=== PATIENT | male | born 1935 | race Caucasian/White ===

== ENCOUNTER → 2019-04-15 15:17 | Outpatient (CLI) | payer MEDICARE, BC, OTHER, SELFPAY ==
--- NOTE | 2019-04-15 | DI.MRI.S_ITS ---
PROCEDURE: MR PELVIS WO CON INDICATIONS: Left hip and groin pain TECHNIQUE: Noncontrast axial and coronal T1 spin echo and STIR through the lumbosacral plexus region. Optional contrast may be given, followed by axial and coronal T1 spin echo with fat saturation through the sacral plexus. Metal artifact suppression technique was utilized. COMPARISON: [facility] Outside Film, RG, HIP COMP MIN 2VW (LT), 06/07/2017, 3:48. [facility] [place], CR, XR PELVIS WITH LATERAL HIP LEFT, 03/08/2019, 13:53. FINDINGS: Image quality: Excellent. Lumbosacral plexus: Superior to the piriformis muscles, the pre-plexal structures appear normal, including the lumbosacral trunk and S1 root. Just anterior to the piriformis muscles, the sacral plexus proper demonstrates normal morphology (lumbosacral trunk, S1 to S3 nerve roots). Inferior to the piriformis muscles, the sciatic nerves appear normal. Soft tissues: The piriformis muscles appear symmetric in size. No presacral masses. Rectum appears normal in caliber and wall thickness. No pathologic free pelvic fluid. No visualized adenopathy by size criteria. There is expected metal artifact related to the left total hip arthroplasty, and no adjacent inflammation or fluid collection is identified. The adjacent bursal space and is in signal intensity within the periarticular left hip region are normal. Note is made of a penile implant, also normal without evidence of adjacent inflammation. Bones: Marrow is normal in overall signal. IMPRESSION: Expected postoperative appearance as discussed above, no source of persistent and recurrent left hip pain after left total hip arthroplasty. Dictated by: Clinton Ivey M.D. on 04/15/2019 at 17:11 Approved by: Clinton Ivey M.D. on 04/15/2019 at 17:14
== END ==
PROVIDERS: Family Provider Family Medicine; PCP Family Medicine; Visit Provider Orthopaedic Surgery
DX: M25.552 Pain in left hip (principal); R10.32 Left lower quadrant pain; Z96.642 Presence of left artificial hip joint
CPT/HCPCS: 72195

== ENCOUNTER → 2020-03-24 11:40 | Outpatient (CLI) | payer MEDICARE, BC, OTHER, SELFPAY ==
[2020-03-24 12:08] LABS: Bacteria Urine None Seen
[2020-03-24 12:38] LABS: Appearance Urine UA CLEAR; Bilirubin Urine UA NEGATIVE (NEGATIVE); Color Urine UA YELLOW; Glucose Urine UA NEGATIVE (Negative); Ketones Urine UA NEGATIVE (NEGATIVE); Leukocyte Esterase Urine UA TRACE (NEGATIVE); Nitrite Urine UA NEGATIVE (Negative); Occult Blood Urine UA 3+ (Negative); Protein Urine UA NEGATIVE (Negative); Specific Gravity Urine UA 1.015 (1.000-1.035); Urobilinogen Urine UA 0.2 E.U./dL (0.2); pH Urine UA 5.5 (4.5-8.0)
[2020-03-24 12:45] LABS: Uric Acid 6.6 mg/dL (3.5-8.5)
[2020-03-24 12:48] LABS: RBC Urine 5-10/HPF (0-5/HPF); WBC Urine 5-10/HPF (0-5/HPF)
[2020-03-24 13:48] LABS: Creatinine Urine Random 193.9 mg/dL
[2020-03-24 13:54] LABS: Microalbumi Creatinin Ratio Ur 31.9 ug/mg CR (<30); Microalbumin Urine Random 6.2 mg/dL (0-1.6)
[2020-03-24 14:05] LABS: Vitamin D 25 Hydroxy (D3) 43.1 ng/mL (30.0-100.0)
[2020-03-25 08:08] LABS: Parathyroid Hormone Int 26 pg/mL (15-65)
[2020-03-27 08:59] LABS: BUN Creatinine Ratio 14.1 (6-22); Blood Urea Nitrogen 26 mg/dL (9-20); Calcium 9.9 mg/dL (8.4-10.2); Carbon Dioxide 30 mmol/L (22-32); Chloride 102 mmol/L (98-107); Estimated Glomerular Filt Rate 35.1 mL/min (>60); Glucose 87 mg/dL (80-110); HEMOLYSIS < 15 (0-50); Potassium 4.6 mmol/L (3.4-5.1); Sodium 138 mmol/L (137-145)
== END ==
PROVIDERS: Family Provider Family Medicine; PCP Family Medicine; Referring Provider Internal Medicine Nephrology; Visit Provider Internal Medicine Nephrology
DX: N18.3 Chronic kidney disease, stage 3 (moderate) (principal)
CPT/HCPCS: 36415; 80048; 81001; 82043; 82306; 82570; 83970; 84550

== ENCOUNTER → 2020-09-05 11:53 | Outpatient (CLI) | payer MEDICARE, BC, OTHER, SELFPAY ==
[2020-09-05 12:29] LABS: Add Manual Diff / Slide Review NO; Basophils Absolute Auto 100 /uL (0-100); Eosinophils Absolute Auto 300 /uL (0-450); Eosinophils Percent Auto 2.9 % (2-4); Hematocrit 47.3 % (41-53); Lymphocytes Absolute Auto 1900 /uL (1100-4500); Mean Corpuscular HGB Conc 33.8 % (30-36); Mean Corpuscular Hemoglobin 31.6 PG (26-34); Mean Corpuscular Volume 93.5 fL (80-100); Monocytes Absolute Auto 700 /uL (0-900); Monocytes Percent Auto 7.9 % (3-14); Neutrophils Absolute Auto 5800 /uL (1500-7000); Neutrophils Percent Auto 66.2 % (50-75); Platelet Count 247 X10^3/uL (150-400); Red Blood Cell Count 5.06 X10^6/uL (4.5-5.9); Red Cell Distribution Width 12.9 % (11.6-14.8); White Blood Cell Count 8.7 X10^3/uL (4.5-11.0)
[2020-09-05 12:52] LABS: Appearance Urine UA CLEAR; Bilirubin Urine UA NEGATIVE (NEGATIVE); Color Urine UA YELLOW; Glucose Urine UA NEGATIVE (Negative); Ketones Urine UA NEGATIVE (NEGATIVE); Leukocyte Esterase Urine UA TRACE (NEGATIVE); Nitrite Urine UA NEGATIVE (Negative); Occult Blood Urine UA TRACE-INTACT (Negative); Protein Urine UA TRACE (Negative); Specific Gravity Urine UA 1.025 (1.000-1.035); Urobilinogen Urine UA 0.2 E.U./dL (0.2); pH Urine UA 5.5 (4.5-8.0)
[2020-09-05 12:57] LABS: Alanine Aminotransferase 17 IU/L (<50); Albumin 4.1 g/dL (3.5-5.0); Albumin Globulin Ratio 1.5 (1.0-2.8); Alkaline Phosphatase 82 U/L (38-126); Aspartate Aminotransferase 20 IU/L (17-59); BUN Creatinine Ratio 15.2 (6-22); Bilirubin Total 0.8 mg/dL (0.2-1.3); Blood Urea Nitrogen 30 mg/dL (9-20); Calcium 9.5 mg/dL (8.4-10.2); Carbon Dioxide 26 mmol/L (22-32); Chloride 104 mmol/L (98-107); Cholesterol 195 mg/dL (140-199); Estimated Glomerular Filt Rate 32.4 mL/min (>60); Globulin 2.8 g/dL (1.7-4.1); Glucose 104 mg/dL (80-110); HDL Cholesterol 49 mg/dL (40-60); HEMOLYSIS < 15 (0-50); LDL Cholesterol Calculated 94 mg/dL (<100); Potassium 4.3 mmol/L (3.4-5.1); Sodium 138 mmol/L (137-145); Total Protein 6.9 g/dL (6.3-8.2); Triglycerides 258 mg/dL (35-150)
[2020-09-05 13:03] LABS: Bacteria Urine Many (>30); Hyaline Casts Urine 10-30/LPF; RBC Urine 1-5/HPF (0-5/HPF); Squamous Epithelial Cell Urine 0-1 /HPF (0-5/HPF); WBC Urine 5-10/HPF (0-5/HPF)
[2020-09-05 13:04] LABS: Culture Indicated Urine Specimen Cultured; Mucus Urine 2+ (Negative)
[2020-09-05 13:26] LABS: Prostate Specific Antigen Scrn 1.78 ng/mL (0.1-4.0)
[2020-09-05 13:27] LABS: Thyroid Stimulating Hormone 3.49 uIU/mL (0.47-4.68)
[2020-09-05 13:44] LABS: Vitamin B12 1000 pg/mL (239-931)
[2020-09-05 15:30] LABS: Creatinine Urine Random 264.4 mg/dL
[2020-09-05 15:33] LABS: Microalbumi Creatinin Ratio Ur 35.1 ug/mg CR (<30); Microalbumin Urine Random 9.3 mg/dL (0-1.6)
[2020-09-05 15:45] LABS: Vitamin D 25 Hydroxy (D3) 39.7 ng/mL (30.0-100.0)
[2020-09-06 06:13] LABS: Parathyroid Hormone Int 37 pg/mL (15-65)
== END ==
PROVIDERS: Family Provider Family Medicine; PCP Family Medicine; Referring Provider Internal Medicine Nephrology; Visit Provider Internal Medicine Nephrology
DX: E03.9 Hypothyroidism, unspecified (principal); I10 Essential (primary) hypertension; Z12.5 Encounter for screening for malignant neoplasm of prostate; Z79.899 Other long term (current) drug therapy; E78.5 Hyperlipidemia, unspecified; M10.9 Gout, unspecified; G20 Parkinson's disease; N18.30 Chronic kidney disease, stage 3 unspecified
CPT/HCPCS: 36415; 80053; 80061; 81001; 82043; 82306; 82570; 82607; 83970; 84439; 84443; 85025; 87086; G0103

== ENCOUNTER 2020-10-31 14:29 | Emergency (ER) | payer MEDICARE, BC, OTHER, SELFPAY ==
[2020-10-31] VITALS (13 sets, daily range): BP systolic 95–173; BP diastolic 64–93; PULSE 78–99; RESP 18–20; TEMP 36.7; O2SAT 94–99
--- NOTE | 2020-10-31 14:48 | ED.GENADULT ---
HPI - General Adult General Chief complaint: Nausea/Vomiting/Diarrhea Stated complaint: nausea,vomiting since Thursday Time Seen by Provider: 10/31/20 14:34 Source: patient and family () Mode of arrival: Wheelchair Limitations: no limitations History of Present Illness HPI narrative: 85-year-old male with a history of Parkinson's disease here for evaluation of approximately 2 days of nausea and vomiting. Patient states that he is also constipated but this is not new for him and is related to his Parkinson's. He has had no recent travel. No recent antibiotic use. He has no abdominal pain. He does get lightheaded when he stands up but again this is not new for him because of his Parkinson's. He was concerned that potentially he is dehydrated from the vomiting. He has been able to drink some fluids without any issues. He did drink some broth last evening and was able to hold this down. He states that last evening he was lying in bed and stated that he really did not feel very well. He is not having any chest pain or shortness of breath. He does not have any nausea medication at home. His states that this has happened to him in the past but it has never lasted this long. Related Data Home Medications Medication Instructions Recorded Confirmed acyclovir 200 mg capsule 400 mg PO BID 03/29/19 03/29/19 amantadine HCl 100 mg capsule 100 mg PO BID 03/29/19 03/29/19 aspirin 81 mg tablet,delayed 81 mg PO DAILY 03/29/19 03/29/19 release atorvastatin 10 mg tablet 10 mg PO BEDTIME 03/29/19 03/29/19 coenzyme Q10 100 mg capsule 200 mg PO DAILY 03/29/19 03/29/19 hydralazine 10 mg tablet 10 mg PO TID 03/29/19 03/29/19 latanoprost 0.005 % eye drops EYE-BOTH ml 03/29/19 03/29/19 levothyroxine 100 mcg capsule 100 mcg PO DAILY 03/29/19 03/29/19 lidocaine 4 % topical cream 1 applictn TOP BID 03/29/19 03/29/19 omeprazole 40 mg capsule,delayed 40 mg PO DAILY 03/29/19 03/29/19 release prednisone 20 mg tablet 20 mg PO DAILY 03/29/19 03/29/19 Previous Rx's Medication Instructions Recorded gabapentin 300 mg capsule 300 mg PO BID #60 cap 03/29/19 ondansetron 4 mg PO Q6H PRN #10 tab 10/31/20 Allergies Allergy/AdvReac Type Severity Reaction Status Date / Time adhesive Allergy Mild BILSTERS Unverified 03/29/19 14:38 FROM TAPE Sulfa (Sulfonamide Allergy Unknown Unverified 03/29/19 14:38 Antibiotics) Review of Systems Constitutional Constitutional: Denies fever(s) and Denies headache(s) ENT Ears, Nose, Mouth, and Throat: Denies headache(s) Cardiovascular Cardiovascular: Denies chest pain and Denies dyspnea Respiratory Respiratory: Denies dyspnea Gastrointestinal Gastrointestinal: Denies abdominal pain, Denies change in bowel habits, Reports nausea and Reports vomiting Genitourinary Genitourinary: Denies dysuria Genitourinary: Denies dysuria Musculoskeletal Musculoskeletal: Denies arthralgias and Denies myalgias Integumentary/Breasts Skin/Breast: Denies rash Neurologic Neurologic: Denies headache(s) Hematologic/Lymphatic On Anticoagulants: No Allergic/Immunologic Allergic/Immunologic: Denies urticaria Patient History Medical History (Updated 10/31/20 @ 17:24 by Kvng Ayala DO) Hx of skin cancer, basal cell Hypothyroid Kidney disease Parkinsons Surgical History History of hip replacement History of tonsillectomy and adenoidectomy Hx of appendectomy Hx of cataract surgery Hx of cholecystectomy Hx of knee surgery Hx of neck surgery Family History Father Hypertension Heart disease Cancer Social History marital status: household members: spouse occupational status: previously employed Smoking Status: Never smoker alcohol intake: current substance use type: does not use Smoking Status: Never smoker Exam Initial Vital Signs Initial Vital Signs: Vital Signs Pulse Rate 99 H 10/31/20 14:35 Blood Pressure 95/64 10/31/20 14:35 Pulse Oximetry 99 10/31/20 14:35 Const General: cooperative and comfortable Limitations: mental status not altered HENMT Head: normal to inspection and normocephalic Resp Effort & Inspection: normal respiratory effort Auscultation: clear to auscultation bilaterally Cardio Rate: regular rate Rhythm: regular rhythm GI Inspection: non-distended Palpation: soft, No firm and No tender Skin Lesions: no lesions Rashes: no rashes Neuro General: patient alert, patient awake and patient oriented x3 Cognition: normal cognition Speech: speech normal Extrem General: normal to inspection and capillary refill normal Psych Appearance: grossly normal and well kempt Scores GCS [place] coma scale eye opening: Spontaneous [place] coma scale verbal response: Orientated [place] coma scale motor response: Obey commands [place] coma scale total score: 15 Course Orders Ordered: ED Orders 10/31/20 15:00 Complete Blood Count AUTO DIFF Stat Comprehensive Metabolic Panel Stat Lipase Stat 10/31/20 16:13 Urine Microscopic Stat Discontinued Medications Sodium Chloride (Normal Saline 0.9%) 1,000 mls @ 1,000 mls/hr IV BOLUS ONE Stop: 10/31/20 15:47 Last Infusion: 10/31/20 16:01 Dose: 0 mls/hr Documented by: Infusion: 10/31/20 15:56 Dose: 1,000 mls/hr Documented by: Infusion: 10/31/20 15:55 Dose: 0 mls/hr Documented by: Admin: 10/31/20 15:11 Dose: 1,000 mls/hr Documented by: SEHRI Vital Signs Vital signs: Vital Signs - 8 hr 10/31/20 14:35 10/31/20 14:36 10/31/20 15:23 Temperature 98.1 F Pulse Rate 99 H 90 79 Respiratory Rate 20 18 Blood Pressure 95/64 160/85 H Blood Pressure [Right Arm] 95/64 Pulse Oximetry 99 96 97 10/31/20 15:26 10/31/20 15:30 10/31/20 16:00 Temperature Pulse Rate 78 79 80 Respiratory Rate Blood Pressure 170/84 H 173/84 H Blood Pressure [Right Arm] Pulse Oximetry 97 97 98 10/31/20 16:08 10/31/20 16:30 10/31/20 16:31 Temperature Pulse Rate 84 85 Respiratory Rate 18 Blood Pressure 170/80 H 170/80 H Blood Pressure [Right Arm] Pulse Oximetry 97 97 10/31/20 16:32 10/31/20 17:00 10/31/20 17:04 Temperature Pulse Rate 85 84 84 Respiratory Rate Blood Pressure Blood Pressure [Right Arm] Pulse Oximetry 94 97 96 10/31/20 17:10 Temperature Pulse Rate 82 Respiratory Rate Blood Pressure 172/93 H Blood Pressure [Right Arm] Pulse Oximetry 96 Medical Decision Making Lab Data Lab results reviewed: Yes I reviewed the patient's lab results. Result diagrams: 10/31/20 15:00 10/31/20 15:00 Labs: Lab Results 10/31/20 10/31/20 10/31/20 Range/Units 15:00 15:00 15:00 WBC 8.7 (4.5-11.0) X10^3/uL RBC 5.35 (4.5-5.9) X10^6/uL Hgb 16.6 (13.5-17.5) g/dL Hct 49.0 (41-53) % MCV 91.4 (80-100) fL MCH 31.1 (26-34) PG MCHC 34.0 (30-36) % RDW 12.7 (11.6-14.8) % Plt Count 227 (150-400) X10^3/uL Neut % (Auto) 75.1 H (50-75) % Lymph % (Auto) 15.6 L (25-40) % [place] % (Auto) 7.1 (3-14) % Eos % (Auto) 1.1 L (2-4) % Baso % (Auto) 1.1 (0-2) % Neut # (Auto) 6600 (3172-6318) /uL Lymph # (Auto) 1400 (2107-0102) /uL [place] # (Auto) 600 (0-900) /uL Eos # (Auto) 100 (0-450) /uL Baso # (Auto) 100 (0-100) /uL Sodium 130 L (137-145) mmol/L Potassium 4.7 (3.4-5.1) mmol/L Chloride 95 L (98-107) mmol/L Carbon Dioxide 24 (22-32) mmol/L BUN 25 H (9-20) mg/dL Creatinine 2.02 H (0.66-1.25) mg/dL Estimated GFR 31.6 L (>60) mL/min BUN/Creatinine Ratio 12.4 (6-22) Glucose 70 L (80-110) mg/dL Calcium 9.5 (8.4-10.2) mg/dL Total Bilirubin 1.0 (0.2-1.3) mg/dL AST 24 (17-59) IU/L ALT 18 (<50) IU/L Alkaline Phosphatase 94 (38-126) U/L Total Protein 7.1 (6.3-8.2) g/dL Albumin 4.2 (3.5-5.0) g/dL Globulin 2.9 (1.7-4.1) g/dL Albumin/Globulin Ratio 1.4 (1.0-2.8) Lipase 48 (23-300) U/L Urine RBC (0-5/HPF) Urine WBC (0-5/HPF) Urine Bacteria (None) Ur Culture Indicated? 10/31/20 Range/Units 16:13 WBC (4.5-11.0) X10^3/uL RBC (4.5-5.9) X10^6/uL Hgb (13.5-17.5) g/dL Hct (41-53) % MCV (80-100) fL MCH (26-34) PG MCHC (30-36) % RDW (11.6-14.8) % Plt Count (150-400) X10^3/uL Neut % (Auto) (50-75) % Lymph % (Auto) (25-40) % [place] % (Auto) (3-14) % Eos % (Auto) (2-4) % Baso % (Auto) (0-2) % Neut # (Auto) (9807-8488) /uL Lymph # (Auto) (7803-8078) /uL [place] # (Auto) (0-900) /uL Eos # (Auto) (0-450) /uL Baso # (Auto) (0-100) /uL Sodium (137-145) mmol/L Potassium (3.4-5.1) mmol/L Chloride (98-107) mmol/L Carbon Dioxide (22-32) mmol/L BUN (9-20) mg/dL Creatinine (0.66-1.25) mg/dL Estimated GFR (>60) mL/min BUN/Creatinine Ratio (6-22) Glucose (80-110) mg/dL Calcium (8.4-10.2) mg/dL Total Bilirubin (0.2-1.3) mg/dL AST (17-59) IU/L ALT (<50) IU/L Alkaline Phosphatase (38-126) U/L Total Protein (6.3-8.2) g/dL Albumin (3.5-5.0) g/dL Globulin (1.7-4.1) g/dL Albumin/Globulin Ratio (1.0-2.8) Lipase (23-300) U/L Urine RBC 1-5/hpf (0-5/HPF) Urine WBC 1-5/hpf (0-5/HPF) Urine Bacteria None seen (None) Ur Culture Indicated? Cult not indicated Urine Dip Bedside Urine Glucose Negative Bedside Urine Bilirubin - Negative Bedside Urine Ketone + 15 Urine Specific [place] 1.020 Bedside Urine Occult Blood +/- Bedside Urine pH 6.0 Bedside Urine Protein - Negative Bedside Urine Urobilinogen - Negative Bedside Urine Nitrite - Negative Bedside Urine Leukocytes - Negative Esterase Point of care testing: Urine Dip Bedside Urine Glucose Negative Bedside Urine Bilirubin - Negative Bedside Urine Ketone + 15 Urine Specific [place] 1.020 Bedside Urine Occult Blood +/- Bedside Urine pH 6.0 Bedside Urine Protein - Negative Bedside Urine Urobilinogen - Negative Bedside Urine Nitrite - Negative Bedside Urine Leukocytes - Negative Esterase MDM Narrative Medical decision making narrative: Patient stated that he did feel better after IV fluids. He was able to tolerate oral intake. His creatinine is at baseline. The rest of his electrolytes are unremarkable. His symptoms are not consistent with CVA. Not consistent with TIA. Could potentially related to his Parkinson's disease. No fevers. He has no abdominal pain. Low suspicion for intra-abdominal pathology. Feel we can hold on CT scan or x-ray for now. Will send home with nausea medicine. Patient agrees with this and would like to go home. He was given return precautions. He expressed understanding and agreement. Discharge Plan Departure Patient Disposition: Home Clinical Impression: Nausea and vomiting Instructions: DI for Nausea -- Adult, DI for Vomiting -- Adult Activity Restrictions/Additional Instructions: He prescription for some nausea medicine was electronically transmitted to [email or web address]. Recommend that you continue all of the rest your medications as directed. Contact your primary provider for follow-up. Return to the emergency department for any new or worsening symptoms Prescriptions: New ondansetron 4 mg tablet,disintegrating 4 mg PO Q6H PRN (Reason: nausea and vomiting) Qty: 10 RF: 0 No Action levothyroxine 100 mcg capsule 100 mcg PO DAILY RF: 0 amantadine HCl 100 mg capsule 100 mg PO BID RF: 0 aspirin [Adult Aspirin Regimen] 81 mg tablet,delayed release (DR/EC) 81 mg PO DAILY RF: 0 acyclovir 200 mg capsule 400 mg PO BID RF: 0 atorvastatin 10 mg tablet 10 mg PO BEDTIME RF: 0 coenzyme Q10 [CoQ-10] 100 mg capsule 200 mg PO DAILY RF: 0 omeprazole 40 mg capsule,delayed release(DR/EC) 40 mg PO DAILY RF: 0 latanoprost 0.005 % drops EYE-BOTH RF: 0 lidocaine 4 % cream 1 applictn TOP BID RF: 0 prednisone 20 mg tablet 20 mg PO DAILY RF: 0 hydralazine 10 mg tablet 10 mg PO TID RF: 0 gabapentin [Neurontin] 300 mg capsule 300 mg PO BID Qty: 60 RF: 0 Referrals: Santana Mckee MD [Primary Care Provider] -
[2020-10-31 15:05] LABS: Add Manual Diff / Slide Review NO; Basophils Absolute Auto 100 /uL (0-100); Basophils Percent Auto 1.1 % (0-2); Eosinophils Absolute Auto 100 /uL (0-450); Eosinophils Percent Auto 1.1 % (2-4); Hemoglobin 16.6 g/dL (13.5-17.5); Lymphocytes Absolute Auto 1400 /uL (1100-4500); Lymphocytes Percent Auto 15.6 % (25-40); Mean Corpuscular Hemoglobin 31.1 PG (26-34); Mean Corpuscular Volume 91.4 fL (80-100); Monocytes Absolute Auto 600 /uL (0-900); Monocytes Percent Auto 7.1 % (3-14); Neutrophils Absolute Auto 6600 /uL (1500-7000); Neutrophils Percent Auto 75.1 % (50-75); Platelet Count 227 X10^3/uL (150-400); Red Blood Cell Count 5.35 X10^6/uL (4.5-5.9); Red Cell Distribution Width 12.7 % (11.6-14.8); White Blood Cell Count 8.7 X10^3/uL (4.5-11.0)
[2020-10-31] MEDS: SODIUM CHLORIDE 0.9% 1,000 ML 1000 ML IV (15:11)
[2020-10-31 15:20] LABS: Alanine Aminotransferase 18 IU/L (<50); Albumin 4.2 g/dL (3.5-5.0); Albumin Globulin Ratio 1.4 (1.0-2.8); Alkaline Phosphatase 94 U/L (38-126); Aspartate Aminotransferase 24 IU/L (17-59); BUN Creatinine Ratio 12.4 (6-22); Blood Urea Nitrogen 25 mg/dL (9-20); Calcium 9.5 mg/dL (8.4-10.2); Carbon Dioxide 24 mmol/L (22-32); Chloride 95 mmol/L (98-107); Estimated Glomerular Filt Rate 31.6 mL/min (>60); Globulin 2.9 g/dL (1.7-4.1); Glucose 70 mg/dL (80-110); HEMOLYSIS < 15 (0-50); Potassium 4.7 mmol/L (3.4-5.1); Sodium 130 mmol/L (137-145); Total Protein 7.1 g/dL (6.3-8.2)
[2020-10-31 15:21] LABS: Lipase 48 U/L (23-300)
[2020-10-31 16:36] LABS: Bacteria Urine None Seen
[2020-10-31 16:59] LABS: RBC Urine 1-5/HPF (0-5/HPF); WBC Urine 1-5/HPF (0-5/HPF)
[2020-10-31 17:00] LABS: Culture Indicated Urine Cult Not Indicated
== END 2020-10-31 17:27 | disposition home or self-care (01) ==
PROVIDERS: Emergency Provider Emergency Medicine; Family Provider Family Medicine; PCP Family Medicine
DX: R11.2 Nausea with vomiting, unspecified (principal); K59.00 Constipation, unspecified; G20 Parkinson's disease
CPT/HCPCS: 36415; 80053; 81003; 81015; 83690; 85025; 96360; 99284

== ENCOUNTER → 2021-07-17 11:17 | Outpatient (CLI) | payer MEDICARE, BC, OTHER, SELFPAY ==
[2021-07-17 12:53] LABS: Add Manual Diff / Slide Review NO; Basophils Absolute Auto 100 /uL (0-100); Basophils Percent Auto 0.8 % (0-2); Eosinophils Absolute Auto 200 /uL (0-450); Eosinophils Percent Auto 2.2 % (2-4); Hematocrit 44.6 % (41-53); Hemoglobin 15.4 g/dL (13.5-17.5); Lymphocytes Absolute Auto 1700 /uL (1100-4500); Lymphocytes Percent Auto 23.6 % (25-40); Mean Corpuscular HGB Conc 34.5 % (30-36); Mean Corpuscular Hemoglobin 32.2 PG (26-34); Mean Corpuscular Volume 93.4 fL (80-100); Monocytes Absolute Auto 700 /uL (0-900); Monocytes Percent Auto 9.6 % (3-14); Neutrophils Absolute Auto 4600 /uL (1500-7000); Neutrophils Percent Auto 63.8 % (50-75); Platelet Count 194 X10^3/uL (150-400); Red Blood Cell Count 4.78 X10^6/uL (4.5-5.9); Red Cell Distribution Width 14.3 % (11.6-14.8); White Blood Cell Count 7.2 X10^3/uL (4.5-11.0)
[2021-07-17 13:20] LABS: Alanine Aminotransferase 17 IU/L (<50); Albumin 4.1 g/dL (3.5-5.0); Albumin Globulin Ratio 1.5 (1.0-2.8); Alkaline Phosphatase 70 U/L (38-126); Aspartate Aminotransferase 25 IU/L (17-59); BUN Creatinine Ratio 13.2 (6-22); Bilirubin Total 1.1 mg/dL (0.2-1.3); Blood Urea Nitrogen 24 mg/dL (9-20); Calcium 9.8 mg/dL (8.4-10.2); Carbon Dioxide 33 mmol/L (22-32); Chloride 100 mmol/L (98-107); Cholesterol 215 mg/dL (140-199); Estimated Glomerular Filt Rate 35.6 mL/min (>60); Globulin 2.7 g/dL (1.7-4.1); Glucose 91 mg/dL (80-110); HDL Cholesterol 48 mg/dL (40-60); HEMOLYSIS < 15 (0-50); LDL Cholesterol Calculated 118 mg/dL (<100); Potassium 4.4 mmol/L (3.4-5.1); Sodium 138 mmol/L (137-145); Total Protein 6.8 g/dL (6.3-8.2); Triglycerides 244 mg/dL (35-150)
[2021-07-17 14:05] LABS: Vitamin B12 939 pg/mL (239-931)
[2021-07-17 14:15] LABS: T7 (Free Thyroxine Index) 4.48 (1.65-3.89)
[2021-07-17 14:28] LABS: Thyroid Stimulating Hormone 3.19 uIU/mL (0.47-4.68)
[2021-07-17 16:27] LABS: Vitamin D 25 Hydroxy (D3) 58.7 ng/mL (30.0-100.0)
== END ==
PROVIDERS: Family Provider Family Medicine; PCP Family Medicine; Referring Provider Family Medicine; Visit Provider Family Medicine
DX: I10 Essential (primary) hypertension (principal); Z79.899 Other long term (current) drug therapy; N40.0 Benign prostatic hyperplasia without lower urinary tract symptoms; E03.9 Hypothyroidism, unspecified; G20 Parkinson's disease
CPT/HCPCS: 36415; 80053; 80061; 82306; 82607; 84436; 84443; 84479; 85025

== ENCOUNTER → 2021-09-04 12:11 | Outpatient (CLI) | payer MEDICARE, BC, OTHER, SELFPAY ==
--- NOTE | 2021-09-04 12:14 | DI.MG.S_ITS ---
MALE BILATERAL DIGITAL DIAGNOSTIC MAMMOGRAM 3D/2D: 09/04/2021 CLINICAL: Focal right breast pain. No prior exams were available for comparison. There is a benign area of fibroglandular tissue in the right breast central to the nipple in the retroareolar region. No other significant masses, calcifications, or other findings are seen in either breast. IMPRESSION: BENIGN Right-sided benign gynecomastia with no mammographic evidence of malignancy. Correlate with medications and/or endocrine abnormalities. This exam was interpreted at Station ID: [id number]. NOTE: For mammograms, a report in lay terms will be sent to the patient. Approximately 15% of breast malignancies will not be visualized mammographically. In the management of a palpable breast mass, a negative mammogram must not discourage biopsy of a clinically suspicious lesion. Electronically Signed By: Ryne Stokes M.D. jr/:09/04/2021 13:04:44 letter sent: Normal Exam ACR BI-RADS Category 2: Benign Finding(s) 3342F
== END ==
PROVIDERS: Family Provider Family Medicine; PCP Family Medicine; Referring Provider Family Medicine; Visit Provider Family Medicine
DX: N62 Hypertrophy of breast (principal); N64.4 Mastodynia
CPT/HCPCS: 77066; G0279

== ENCOUNTER → 2021-12-23 10:27 | Outpatient (CLI) | payer MEDICARE, BC, OTHER, SELFPAY | PROVIDERS: Family Provider Family Medicine; PCP Family Medicine; Referring Provider Internal Medicine Endocrinology, Diabetes & Metabolism; Visit Provider Internal Medicine Endocrinology, Diabetes & Metabolism | DX: E03.9 Hypothyroidism, unspecified (principal) | CPT/HCPCS: 36415; 84443 ==

== ENCOUNTER 2022-06-30 11:42 | Observation (INO) | payer MEDICARE, BC, OTHER, SELFPAY ==
[2022-06-30] VITALS (13 sets, daily range): BP systolic 125–163; BP diastolic 70–112; PULSE 80–91; RESP 16–17; TEMP 35.7–37; O2SAT 95–97; BMI 30.5
--- NOTE | 2022-06-30 12:15 | PC.NURSE ---
Patient has noted over last couple days while using arms to get up right arm would just fall down. Patient unable to lift up right leg to bed or off wheelchair pedal. Has had similar issue in past which resolved thought maybe a pinched nerve
--- NOTE | 2022-06-30 12:21 | DI.CT.S_ITS ---
PROCEDURE: CT HEAD/BRAIN WO CON INDICATIONS: right weakness arm/leg several days, hx parkinson TECHNIQUE: Noncontrast 4.5 mm thick angled axial sections acquired from the foramen magnum to the vertex, with coronal and sagittal reformats. For radiation dose reduction, the following was used: automated exposure control, adjustment of mA and/or kV according to patient size. COMPARISON: None. FINDINGS: Image quality: Excellent. CSF spaces: Basal cisterns are patent. No extra-axial fluid collections. There is bilateral ventriculomegaly, asymmetric, left greater than right. Asymmetry is likely within normal limits. Ventriculomegaly is somewhat out of proportion to sulcal prominence. Brain: No intracranial bleeds or masses. There is cerebral volume loss for age, with resultant ventricular and sulcal prominence. There are periventricular and deep white matter chronic small vessel ischemic changes. There is intracranial internal carotid artery atherosclerosis. Skull and face: Calvarium and visualized facial bones appear intact, without suspicious lesions. Sinuses: Visualized sinuses and mastoids are clear. IMPRESSION: 1. Diffuse volume loss, with prominent ventriculomegaly. 2. No evidence of acute intracranial process. Dictated by: Eder Richmond M.D. on 06/30/2022 at 13:20 Approved by: Eder Richmond M.D. on 06/30/2022 at 13:22
--- NOTE | 2022-06-30 12:22 | DI.CT.S_ITS ---
PROCEDURE: CT ANGIO HEAD AND NECK INDICATIONS: right weakness arm/leg several days, hx parkinson TECHNIQUE: After the administration of intravenous contrast, 1 mm thick sections acquired from the aortic arch through the [place]. Post-contrast 4.5 mm thick sections then re-acquired from the foramen magnum to the vertex. 3-dimensional [id number] (MIP) and/or volume rendering reformats were acquired of the central intracranial vasculature and neck separately. For radiation dose reduction, the following was used: automated exposure control, adjustment of mA and/or kV according to patient size. COMPARISON: None. FINDINGS: Image quality: Excellent. BRAIN: CSF spaces: Asymmetric ventriculomegaly, left greater than right. No focal masses. No stroke or hemorrhage seen. Basal cisterns are patent. No extra-axial fluid collections. Brain: No midline shift. No intracranial bleeds or masses. Mo-white matter interface appears intact. Skull and face: Calvarium and facial bones appear intact, without suspicious lesions. Orbits appear normal. Sinuses: Sinuses and mastoids are clear. HEAD CT ANGIOGRAPHY: Anterior circulation: Intracranial internal carotid arteries are normal in size and flow. The flow within the paired anterior cerebral arteries is normal and symmetric. The flow within the middle cerebral arteries is normal and symmetric. The anterior communicating artery is seen. No aneurysms are seen. Posterior circulation: Visualized portions of the vertebral arteries demonstrate normal caliber, and join to form a normal appearing basilar artery. Flow within the posterior cerebral arteries is normal and symmetric. No aneurysms are seen. NECK CT ANGIOGRAPHY: Carotid system: The great vessels demonstrate a conventional anatomy as they arise from the aortic arch. Marked tortuosity of the proximal great vessels. The origins of the common carotid arteries appear patent. The common carotid arteries demonstrate normal caliber and courses. Mild bilateral proximal internal carotid artery stenosis, less than 50% bilaterally. Posterior circulation: The origins of the vertebral arteries both appear widely patent. The more superior extracranial portions of both vertebral arteries also demonstrate normal courses and calibers. They join to form a normal appearing basilar artery. Soft tissues: Visualized neck soft tissues demonstrate no suspicious abnormalities. Bones: No suspicious bony lesions. Visualized cervical spine appears normally aligned. IMPRESSION: 1. Asymmetric ventriculomegaly, left greater than right. No obstructing lesion identified. 2. No evidence acute stroke, hemorrhage, or mass. 3. Unremarkable CTA head. No stenosis, aneurysm, occlusion, or focal filling defect. 4. Mild bilateral internal carotid artery stenosis, less than 50%. Any quantitative measurements of stenosis were performed using NASCET criteria. Dictated by: Eder Richmond M.D. on 06/30/2022 at 13:22 Approved by: Eder Richmond M.D. on 06/30/2022 at 13:30
[2022-06-30 12:31] LABS: Add Manual Diff / Slide Review NO; Basophils Absolute Auto 100 /uL (0-100); Eosinophils Absolute Auto 200 /uL (0-450); Hematocrit 45.3 % (41-53); Hemoglobin 15.3 g/dL (13.5-17.5); Lymphocytes Absolute Auto 1500 /uL (1100-4500); Lymphocytes Percent Auto 18.7 % (25-40); Mean Corpuscular HGB Conc 33.6 % (30-36); Mean Corpuscular Hemoglobin 31.9 PG (26-34); Mean Corpuscular Volume 94.9 fL (80-100); Monocytes Absolute Auto 600 /uL (0-900); Monocytes Percent Auto 7.7 % (3-14); Neutrophils Absolute Auto 5400 /uL (1500-7000); Neutrophils Percent Auto 69.6 % (50-75); Platelet Count 214 X10^3/uL (150-400); Prothrombin Time 11.7 SECONDS (10.1-12.7); Red Blood Cell Count 4.78 X10^6/uL (4.5-5.9); Red Cell Distribution Width 13.4 % (11.6-14.8); White Blood Cell Count 7.8 X10^3/uL (4.5-11.0)
[2022-06-30 12:33] LABS: PTT Partial Thromboplastin Tim 31 SECONDS (26-36)
[2022-06-30 12:38] LABS: BUN Creatinine Ratio 13.7 (6-22); Blood Urea Nitrogen 24 mg/dL (9-20); Calcium 9.1 mg/dL (8.4-10.2); Carbon Dioxide 27 mmol/L (22-32); Chloride 103 mmol/L (98-107); Creatine Kinase 30 U/L (55-170); Estimated Glomerular Filt Rate 37 mL/min (>60); Glucose 150 mg/dL (80-110); HEMOLYSIS < 15 (0-50); Potassium 3.8 mmol/L (3.4-5.1); Sodium 139 mmol/L (137-145)
[2022-06-30 12:47] LABS: COVID19 -Nasal RAPID Negative (Negative)
[2022-06-30 12:50] LABS: Troponin I < 0.012 ng/mL (0.01-0.034)
[2022-06-30 13:47] LABS: Bacteria Urine None Seen; Culture Indicated Urine Specimen Cultured; RBC Urine None Seen (0-5/HPF); WBC Urine 1-5/HPF (0-5/HPF)
[2022-06-30 13:54] LABS: UR Morphine/Opiate cutoff 300 Negative (Negative); Ur Creatinine Normal (Normal); Ur Specific Gravity Normal (Normal); Urine Amphetamines Negative (Negative); Urine Barbiturates Negative (Negative); Urine Benzodiazepines Negative (Negative); Urine Cocaine Negative (Negative); Urine MDMA Negative (Negative); Urine Methadone Negative (Negative); Urine Methamphetamines Negative (Negative); Urine Oxycodone Negative (Negative); Urine Phencyclidine Negative (Negative); Urine Tetrahydrocannabinol Negative (Negative); Urine Tricyclic Antidepressant Negative (Negative); Urine pH Normal (Normal)
[2022-06-30] MEDS: SODIUM CHLORIDE 0.9% 1,000 ML 150 ML IV (14:09)
--- NOTE | 2022-06-30 14:50 | ED_ITS ---
HPI - Neuro Symptoms/Deficit General Chief Complaint: Neuro Symptoms/Deficit Stated Complaint: Parkinsons/Rt Arm Numbness/Foggy/Dizzy Time Seen by Provider: 06/30/22 12:21 Source: patient Mode of arrival: Family Vehicle Limitations: no limitations History of Present Illness HPI Narrative: This is a 87-year-old male with history of Parkinson's disease, TIA, hypothyroidism, GERD, dyslipidemia and difficulty with urination. Patient states they have noted that in the past 2 or 3 days his right side is weaker than his left. He notes his right arm and leg are both weaker than his left side. He states this was sudden onset he is unclear if he woke up with it or it started during the day. He had something similar happen a couple months ago but resolved after some time. He states his symptoms have not been improving over the last couple days he is also been a little bit dizzy but no syncope. He denies any speech changes, normally has an cricket smile but has not had any changes to his smile for facial expressions. He denies headache, no chest pain, no shortness of breath, no nausea or vomiting had some issues with chronic constipation but no acute changes. He follows with urology for difficulties w ith urination. Patient has had prior neck fusion in 1979, left hip repair, hernia surgery, cholecystectomy, appendectomy tonsil and adenoids as well as excision for skin cancers. Allergic to sulfa. No tobacco, 1 or 2 alcoholic drinks daily, no illicit. Not on any anti Parkinson's medications currently. He follows with Dr. Mckee for his PCP. Dr. Smallwood for Neurology in [place]. On Anticoagulants: No Related Data Home Medications Medication Instructions Recorded Confirmed acyclovir 200 mg capsule 400 mg PO BID 03/29/19 03/29/19 amantadine HCl 100 mg capsule 100 mg PO BID 03/29/19 03/29/19 aspirin 81 mg tablet,delayed 81 mg PO DAILY 03/29/19 03/29/19 release (Adult Aspirin Regimen) atorvastatin 10 mg tablet 10 mg PO BEDTIME 03/29/19 03/29/19 coenzyme Q10 100 mg capsule 200 mg PO DAILY 03/29/19 03/29/19 (CoQ-10) hydralazine 10 mg tablet 10 mg PO TID 03/29/19 03/29/19 latanoprost 0.005 % eye drops EYE-BOTH 03/29/19 03/29/19 levothyroxine 100 mcg capsule 100 mcg PO DAILY 03/29/19 03/29/19 lidocaine 4 % topical cream 1 applictn topical BID 03/29/19 03/29/19 omeprazole 40 mg capsule,delayed 40 mg PO DAILY 03/29/19 03/29/19 release prednisone 20 mg tablet 20 mg PO DAILY 03/29/19 03/29/19 Previous Rx's Medication Instructions Recorded gabapentin 300 mg capsule 300 mg PO BID neuritis #60 caps 03/29/19 (Neurontin) ondansetron 4 mg disintegrating 4 mg PO Q6H PRN nausea and 10/31/20 tablet vomiting #10 tabs Allergies Allergy/AdvReac Type Severity Reaction Status Date / Time adhesive Allergy Mild BILSTERS Unverified 06/30/22 12:12 FROM TAPE Sulfa (Sulfonamide Allergy Unknown Unverified 06/30/22 12:12 Antibiotics) Review of Systems Review of Systems ROS Unobtainable: All systems reviewed & are unremarkable except as noted in HPI and below Hematologic/Lymphatic On Anticoagulants: No Patient History Medical History (Updated 06/30/22 @ 17:47 by Elmira Arnett DO) Hx of skin cancer, basal cell Hypothyroid Kidney disease Parkinsons Surgical History History of hip replacement History of tonsillectomy and adenoidectomy Hx of appendectomy Hx of cataract surgery Hx of cholecystectomy Hx of knee surgery Hx of neck surgery Family History Father Hypertension Heart disease Cancer Social History marital status: household members: spouse occupational status: previously employed Smoking Status: Never smoker alcohol intake: current substance use type: does not use Smoking Status: Never smoker alcohol intake frequency: 0-2 drinks per day Substance Use Type: does not use Exam Narrative Exam Narrative: GEN: well nourished, well appearing male, alert and oriented x 3, patient appears to be in mild distress. HEENT: Atraumatic, pupils are equal round reactive to light, extraocular movements are intact, nares are clear, TMs are clear with no fluid, there is no conjunctival pallor. Throat is clear without any exudates, erythema, tonsillar enlargement or uvular deviation, patient does have some droop on his right smile but both patient and state this is longstanding and normal. I do not appreciate any changes nasal labial fold. HEART: Regular rate and rhythm without murmur, clicks, rubs. Pulses are equal in upper and lower extremities LUNGS:Lungs clear to auscultation, no wheezes, rales, crackles, chest moves symmetrically ABD:bowel sounds normal, soft, non-tender, no guarding, rebound, rigidity, no masses noted, no hepatosplenomegaly :No CVA tenderness MSCL: Non-tender, no muscle atrophy, patient does not have any drift on exam of upper or lower extremities. 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 Full range of motion but is noted to have weakness when trying to lift his leg into and out of the bed or ambulate. NEURO:CN 2-12 intact, sensation normal, finger nose finger test normal, heel mcrae test normal Initial Vital Signs Initial Vital Signs: Vital Signs Temperature 98.6 F 06/30/22 11:50 Pulse Rate 85 06/30/22 11:50 Respiratory Rate 16 06/30/22 11:50 Blood Pressure 125/70 06/30/22 11:50 Pulse Oximetry 96 06/30/22 11:50 Oxygen Delivery Method 06/30/22 11:50 Scores NIH Stroke Scale Level of Conciousness: Alert, keenly responsive Ask month/age: Answers both questions correctly. Open/close eyes, close hand: Performs both tasks correctly Best gaze horizontal: Normal Visual thomason: No visual loss Facial palsy: Normal symetrical movement Left arm drift: No drift for full 10 sec Right arm drift: Drifts down, not to bed (no drift on nIH but weak with wa lking/getting in and out of bed.) Left leg drift: No drift for full 5 sec Right leg drift: Drifts down, not to bed (no drift on NIH but weak with walkin g/getting in/out of bed. ) Limb ataxia: Absent Sensory on face/arms/legs: Normal, no sensory loss Best language: No aphasia, normal Dysarthria: Normal Extinction or inattention: No abnormality Total NIH Stroke scale score: 2 Course Orders Ordered: ED Orders 06/30/22 12:05 Basic Metabolic Panel Stat Complete Blood Count AUTO DIFF Stat Partial Thromboplastin Time Stat Prothrombin Time INR Stat Troponin & CK Cardiac Panel Stat 06/30/22 12:21 CT head/brain wo con Stat EKG-12 Lead Stat 06/30/22 12:22 CT angio head and neck Stat 06/30/22 12:27 COVID19 -Nasal RAPID/Pre-Proc Stat 06/30/22 13:24 Urine Culture Stat Urine Microscopic Stat 06/30/22 13:52 Urine Drug Screen, Rapid Stat 06/30/22 15:30 MR head/brain wo con Stat Sodium Chloride (Normal Saline 0.9%) 1,000 mls @ 150 mls/hr IV CONT JENNY Last Admin: 06/30/22 14:09 Dose: 150 mls/hr Documented By: ADK Discontinued Medications Aspirin (Aspirin 81 Mg Chew Tab) 324 mg PO NOW ONE Stop: 06/30/22 17:49 Consultations Consultation #1: Dr. Kalyan Kc, neurology telestroke. Would recommend switching from aspirin to Plavix 75 mg daily, does not recommend loading dose at this time he does recommend typical stroke workup in the hospital with echo, cardiac monitoring and patient is recommended to follow up as an outpatient for further workup of the potential hydrocephalus as this could be the cause of his Parkinson's like symptoms particularly if he does not have tremor present. He can follow-up with them and their outpatient clinic or with his neurologist whichever is preferrable. Time: 18:17 Consultation #2: Dr. Moya, hospitalist-accepts for inpatient. Discussed recommendations from neurology. Time: 18:32 Vital Signs Vital signs: Vital Signs - 8 hr 06/30/22 11:50 06/30/22 13:04 06/30/22 13:24 Temperature 98.6 F Pulse Rate 85 83 89 Respiratory Rate 16 Blood Pressure 125/70 Pulse Oximetry 96 96 96 Oxygen Delivery Method Room Air 06/30/22 13:24 06/30/22 13:30 06/30/22 13:30 Temperature Pulse Rate 84 Respiratory Rate Blood Pressure 159/89 H 136/82 Pulse Oximetry 96 Oxygen Delivery Method 06/30/22 14:00 06/30/22 14:00 06/30/22 14:30 Temperature Pulse Rate 80 Respiratory Rate Blood Pressure 140/83 144/87 H Pulse Oximetry 96 Oxygen Delivery Method 06/30/22 14:30 06/30/22 15:00 11/14/22 15:30 Temperature Pulse Rate 83 86 89 Respiratory Rate Blood Pressure Pulse Oximetry 96 96 97 Oxygen Delivery Method 06/30/22 15:31 06/30/22 15:31 06/30/22 16:00 Temperature Pulse Rate 87 Respiratory Rate Blood Pressure 163/98 H 148/97 H Pulse Oximetry 97 Oxygen Delivery Method 06/30/22 16:00 06/30/22 16:30 06/30/22 16:30 Temperature Pulse Rate 88 84 Respiratory Rate Blood Pressure 136/93 H Pulse Oximetry 95 95 Oxygen Delivery Method 06/30/22 17:00 Temperature Pulse Rate 91 H Respiratory Rate Blood Pressure Pulse Oximetry 96 Oxygen Delivery Method MDM - Neuro Symptoms/Deficit Lab Data Result diagrams: 06/30/22 12:05 06/30/22 12:05 Labs: Lab Results 06/30/22 06/30/22 06/30/22 Range/Units 12:05 12:05 12:05 WBC 7.8 (4.5-11.0) X10^3/uL RBC 4.78 (4.5-5.9) X10^6/uL Hgb 15.3 (13.5-17.5) g/dL Hct 45.3 (41-53) % MCV 94.9 (80-100) fL MCH 31.9 (26-34) PG MCHC 33.6 (30-36) % RDW 13.4 (11.6-14.8) % Plt Count 214 (150-400) X10^3/uL Neut % (Auto) 69.6 (50-75) % Lymph % (Auto) 18.7 L (25-40) % [place] % (Auto) 7.7 (3-14) % Eos % (Auto) 3.0 (2-4) % Baso % (Auto) 1.0 (0-2) % Neut # (Auto) 5400 (9770-3257) /uL Lymph # (Auto) 1500 (4554-6390) /uL [place] # (Auto) 600 (0-900) /uL Eos # (Auto) 200 (0-450) /uL Baso # (Auto) 100 (0-100) /uL PT 11.7 (10.1-12.7) SECONDS INR 1.0 (0.9-1.3) APTT 31 (26-36) SECONDS Sodium 139 (137-145) mmol/L Potassium 3.8 (3.4-5.1) mmol/L Chloride 103 (98-107) mmol/L Carbon Dioxide 27 (22-32) mmol/L BUN 24 H (9-20) mg/dL Creatinine 1.75 H (0.66-1.25) mg/dL Estimated GFR 37 L (>60) mL/min BUN/Creatinine Ratio 13.7 (6-22) Glucose 150 H (80-110) mg/dL Calcium 9.1 (8.4-10.2) mg/dL Total Creatine Kinase 30 L (55-170) U/L CK-MB (CK-2) TNP CK-MB (CK-2) Rel Index TNP Troponin I < 0.012 (0.01-0.034) ng/mL Urine RBC (0-5/HPF) Urine WBC (0-5/HPF) Urine Bacteria (None) Ur Culture Indicated? U Opiates 300ng/mL cut (Negative) Ur Oxycodone Screen (Negative) Urine Methadone Screen (Negative) Ur Barbiturates Screen (Negative) U Tricyclic Antidepress (Negative) Ur Phencyclidine Scrn (Negative) Ur Amphetamines Screen (Negative) U Methamphetamines Scrn (Negative) Ur MDMA Scrn (Ecstasy) (Negative) U Benzodiazepines Scrn (Negative) Urine Cocaine Screen (Negative) U Marijuana (THC) Screen (Negative) SARS-CoV-2 (PCR) (Negative) 06/30/22 06/30/22 06/30/22 Range/Units 12:27 13:24 13:52 WBC (4.5-11.0) X10^3/uL RBC (4.5-5.9) X10^6/uL Hgb (13.5-17.5) g/dL Hct (41-53) % MCV (80-100) fL MCH (26-34) PG MCHC (30-36) % RDW (11.6-14.8) % Plt Count (150-400) X10^3/uL Neut % (Auto) (50-75) % Lymph % (Auto) (25-40) % [place] % (Auto) (3-14) % Eos % (Auto) (2-4) % Baso % (Auto) (0-2) % Neut # (Auto) (2191-0955) /uL Lymph # (Auto) (1252-5676) /uL [place] # (Auto) (0-900) /uL Eos # (Auto) (0-450) /uL Baso # (Auto) (0-100) /uL PT (10.1-12.7) SECONDS INR (0.9-1.3) APTT (26-36) SECONDS Sodium (137-145) mmol/L Potassium (3.4-5.1) mmol/L Chloride (98-107) mmol/L Carbon Dioxide (22-32) mmol/L BUN (9-20) mg/dL Creatinine (0.66-1.25) mg/dL Estimated GFR (>60) mL/min BUN/Creatinine Ratio (6-22) Glucose (80-110) mg/dL Calcium (8.4-10.2) mg/dL Total Creatine Kinase (55-170) U/L CK-MB (CK-2) CK-MB (CK-2) Rel Index Troponin I (0.01-0.034) ng/mL Urine RBC None seen (0-5/HPF) Urine WBC 1-5/hpf (0-5/HPF) Urine Bacteria None seen (None) Ur Culture Indicated? Specimen cultured U Opiates 300ng/mL cut Negative (Negative) Ur Oxycodone Screen Negative (Negative) Urine Methadone Screen Negative (Negative) Ur Barbiturates Screen Negative (Negative) U Tricyclic Antidepress Negative (Negative) Ur Phencyclidine Scrn Negative (Negative) Ur Amphetamines Screen Negative (Negative) U Methamphetamines Scrn Negative (Negative) Ur MDMA Scrn (Ecstasy) Negative (Negative) U Benzodiazepines Scrn Negative (Negative) Urine Cocaine Screen Negative (Negative) U Marijuana (THC) Screen Negative (Negative) SARS-CoV-2 (PCR) Negative (Negative) Urine Dip Bedside Urine Glucose Negative Bedside Urine Bilirubin - Negative Bedside Urine Ketone - Negative Urine Specific D Lo 1.015 Bedside Urine Occult Blood - Negative Bedside Urine pH 6.0 Bedside Urine Protein - Negative Bedside Urine Urobilinogen - Negative Bedside Urine Nitrite - Negative Bedside Urine Leukocytes + [address] scan - head: Radiologist's Impression: Close Head/Neck CTA (Signed) Eder Richmond - 06/30/[address] (Signed) Eder Richmond - 06/30/22 Mammogram Diagnostic (Signed) Ryne Stokes - 09/04/21 Pelvis MRI (Signed) Clinton Ivey - 04/15/19 Launch?[address] [address] [address] Scan Report Signed Patient: Jimmy Carrera MR#: [id number] : 1935 Acct:[id number] Age/Sex: 87 / M Date of Service: 06/30/22 Loc: ED Accession Number: [id number] ?? Procedure: CT head/brain wo con Ordering Provider: Elmira Arnett D.O. PROCEDURE:? CT HEAD/BRAIN WO CON ? INDICATIONS:? right weakness arm/leg several days, hx parkinson ? TECHNIQUE:? Noncontrast 4.5 mm thick angled axial sections acquired from the foramen magnum to the vertex, with coronal and sagittal reformats.? For radiation dose reduction, the following was used:? automated exposure control, adjustment of mA and/or kV according to patient size.? ? COMPARISON:? None. ? FINDINGS:? Image quality:? Excellent.? ? CSF spaces:? Basal cisterns are patent.? No extra-axial fluid collections.? There is bilateral ventriculomegaly, asymmetric, left greater than right.? Asymmetry is likely within normal limits.? Ventriculomegaly is somewhat out of proportion to sulcal prominence. ? Brain:? No intracranial bleeds or masses.? There is cerebral volume loss for age, with resultant ventricular and sulcal prominence.? There are periventricular and deep white matter chronic small vessel ischemic changes.? There is intracranial internal carotid artery atherosclerosis.? ? Skull and face:? Calvarium and visualized facial bones appear intact, without suspicious lesions.? ? Sinuses:? Visualized sinuses and mastoids are clear.? ? IMPRESSION:? ? 1. Diffuse volume loss, with prominent ventriculomegaly. ? 2. No evidence of acute intracranial process. ? ? Dictated by: Eder Richmond M.D. on 06/30/2022 at 13:20 ? ? Approved by: Eder Richmond M.D. on 06/30/2022 at 13:22?? CTA - brain/neck: Radiologist's Impression: Jimmy Carrera??87??M??1935 ? Allergy/Adv: adhesive, Sulfa (Sulfonamide Antibiotics) (More??) Close Head/Neck CTA (Signed) Liliam Richmondic - 06/30/[address] (Signed) Fransisco Richmondderic - 06/30/22 Mammogram Diagnostic (Signed) Ryne Stokes - 09/04/21 Pelvis MRI (Signed) Clinton Ivey - 04/15/19 Launch?[place] [address] CT Scan Report Signed Patient: Jimmy Carrera MR#: [id number] : 1935 Acct:[id number] Age/Sex: 87 / M Date of Service: 06/30/22 Loc: ED Accession Number: [id number] ?? Procedure: CT angio head and neck Ordering Provider: Elmira Arnett D.O. PROCEDURE:? CT ANGIO HEAD AND NECK ? INDICATIONS:? right weakness arm/leg several days, hx parkinson ? TECHNIQUE:? ?After the administration of intravenous contrast, 1 mm thick sections acquired from the aortic arch through the [place] of [place].? Post-contrast 4.5 mm thick sections then re-acquired from the foramen magnum to the vertex.? 3-dimensional ihvslvp-cceluhxor-yqgrnbscyy (MIP) and/or volume rendering reformats were acqui red of the central intracranial vasculature and neck separately. For radiation dose reduction, the following was used:? automated exposure control, adjustment of mA and/or kV according to patient size.? ? COMPARISON:? None. ? FINDINGS:? Image quality:? Excellent.? ? BRAIN:? CSF spaces:? Asymmetric ventriculomegaly, left greater than right.? No focal masses.? No stroke or hemorrhage seen.? Basal cisterns are patent.? No extra-axial fluid collections. ? ? Brain:? No midline shift.? No intracranial bleeds or masses.? Mo-white matter interface appears intact.? ? Skull and face:? Calvarium and facial bones appear intact, without suspicious lesions.? Orbits appear normal.? ? Sinuses:? Sinuses and mastoids are clear.? ? HEAD CT ANGIOGRAPHY:? Anterior circulation:? Intracranial internal carotid arteries are normal in size and flow.? The flow within the paired anterior cerebral arteries is normal and symmetric.? The flow within the middle cerebral arteries is normal and symmetric.? The anterior communicating artery is seen.? No aneurysms are seen.? ? Posterior circulation:? Visualized portions of the vertebral arteries demonstrate normal caliber, and join to form a normal appearing basilar artery.? Flow within the posterior cerebral arteries is normal and symmetric.? No aneurysms are seen.? ? NECK CT ANGIOGRAPHY:? Carotid system:? The great vessels demonstrate a conventional anatomy as they arise from the aortic arch.? Marked tortuosity of the proximal great vessels.? The origins of the common carotid arteries appear patent.? The common carotid arteries demonstrate normal caliber and courses.? Mild bilateral proximal internal carotid artery stenosis, less than 50% bilaterally. ? Posterior circulation:? The origins of the vertebral arteries both appear widely patent.? The more superior extracranial portions of both vertebral arteries also demonstrate normal courses and calibers.? They join to form a normal appearing basilar artery.? ? Soft tissues:? Visualized neck soft tissues demonstrate no suspicious abnormalities.? ? Bones:? No suspicious bony lesions.? Visualized cervical spine appears normally aligned.? IMPRESSION:? ? 1. Asymmetric ventriculomegaly, left greater than right.? No obstructing lesion identified. ? 2. No evidence acute stroke, hemorrhage, or mass. ? 3. Unremarkable CTA head.? No stenosis, aneurysm, occlusion, or focal filling defect. ? 4. Mild bilateral internal carotid artery stenosis, less than 50%.? ? Any quantitative measurements of stenosis were performed using NASCET criteria.? ? ? Dictated by: Eder Richmond M.D. on 06/30/2022 at 13:22 ? ? Approved by: Eder Richmond M.D. on 06/30/2022 at 13:30?? MRI brain: Radiologist's Impression: Close Brain MRI (Signed) Leodan Dorman - 06/30/22 Head/Neck CTA (Signed) Eder Richmond - 06/30/[address] (Signed) Eder Richmond - 06/30/22 Launch?[address] [address] Magnetic Resonance Report Signed Patient: Jimmy Carrera MR#: [id number] : 1935 Acct:[id number] Age/Sex: 87 / M Date of Service: 06/30/22 Loc: ED Accession Number: [id number] ?? Procedure: MR head/brain wo con Ordering Provider: Elmira rAnett D.O. PROCEDURE:? MR HEAD/BRAIN WO CON ? INDICATIONS:? right weak arm/leg x 2-3 days, parkinson's hx ? TECHNIQUE:? Non-contrast axial T1 spin echo, axial T2 fast spin echo, sagittal and axial FLAIR, coronal T2 fast spin echo, axial gradient echo, axial diffusion and ADC through the brain.? ? COMPARISON:? [facility], CT, CT ANGIO HEAD AND NECK, 06/30/2022, 12:48.? [facility], CT, CT HEAD/BRAIN WO CON, 06/30/2022, 12:48. ? FINDINGS:? Image quality:? This examination is limited by involuntary motion artifact.? ? CSF spaces:? The ventricles are prominent, particularly the left lateral ventricle. ? Basal cisterns are patent.? No extra-axial fluid collections.? ? Brain: ? There are small areas of abnormal diffusion-weighted signal seen involving the left frontal lobe, with associated dark signal on the ADC maps.? Mild developing T2 weighted signal can be seen at these sites. ? No intracranial bleeds or mass effects.? There is cerebral volume loss for age.? There are periventricular and deep white matter chronic small vessel ischemic changes.? Brainstem appears normal.? No chronic ischemic insults.? Normal intravascular flow voids are present.? ? Skull and face:? Calvarial bone marrow is normal in signal.? Orbits are normal.? Note is made of bilateral lens replacements. ? Sinuses:? Sinuses and mastoids are clear.? ? ? IMPRESSION:? There is abnormal diffusion-weighted signal seen at several small sites involving the frontal lobe, which is related to areas of subacute infarction. ? Prominent lateral ventricles, left worse than right.? The degree of ventric ulomegaly is larger than would be expected for the degree of sulcal atrophy.? Please consider normal pressure hydrocephalus.? ? Dictated by: Leodan Dorman M.D. on 06/30/2022 at 16:07 ? ? Approved by: Leodan Dorman M.D. on 06/30/2022 at 16:10?? ECG Data Attestation: I personally reviewed and interpreted this ECG as follows: Interpretation: Of 87, P wave not appreciated with every QRS, QTC 464. Right bundle-branch, left anterior fascicular block/bifascicular block. No priors for comparison. MDM Narrative Medical decision making narrative: This is an 87-year-old male with history of Parkinson's not currently on any anti Parkinson's medications he does not have tremor. Has noticed acute onset of weakness of his right side about 2 days ago which has been persistent. 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 Patient is far outside tPA or code IR window. Head CT and CT angiography do not show significant stenosis but there is some left greater than right ventriculomegaly with no obvious obstructive lesion. Labs do not show any acute change such as hyponatremia sodium at baseline or slightly better at 1.75. Patient MRI shows abnormal diffusion weighted signal at several small sites including the frontal lobe which is related to areas of subacute infarct, prominent ventricles left worse than right the degree of ventriculomegaly is larger than would be expected for degree of sulcal atrophy please consider normal pressure hydrocephalus. Case discussed with Neurology/Telestroke. Recommend switching from aspirin to Plavix 75 mg daily does not recommend dual antiplatelet therapy at this time as patient has been taking an aspirin every other day. He reviewed patient's images carotids appear clean, he states that stroke is consistent with patient's current symptoms and MR findings does recommend outpatient follow-up with Neurology for hydrocephalus workup. 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 He is on a statin at 10 mg daily and he takes aspirin 81 mg every other day. Reviewed all these findings with patient and his . states that there was discussion when he was initially diagnosed with a movement specialist at [facility] this was some years ago but had not been revisited but she states that it did come will give them an MRI disc with report so that they can follow-up. Stroke Core Measures Exclusion Criteria TPA in CVA: Symptom Onset >3 or 4.5 Hours Discharge Plan Departure Patient Disposition: Admitted As Inpatient Clinical Impression: Stroke Admit Date/Time: 06/30/22 18:29
--- NOTE | 2022-06-30 15:30 | DI.MRI.S_ITS ---
PROCEDURE: MR HEAD/BRAIN WO CON INDICATIONS: right weak arm/leg x 2-3 days, parkinson's hx TECHNIQUE: Non-contrast axial T1 spin echo, axial T2 fast spin echo, sagittal and axial FLAIR, coronal T2 fast spin echo, axial gradient echo, axial diffusion and ADC through the brain. COMPARISON: [facility], CT, CT ANGIO HEAD AND NECK, 06/30/2022, 12:48. [facility], CT, CT HEAD/BRAIN WO CON, 06/30/2022, 12:48. FINDINGS: Image quality: This examination is limited by involuntary motion artifact. CSF spaces: The ventricles are prominent, particularly the left lateral ventricle. Basal cisterns are patent. No extra-axial fluid collections. Brain: There are small areas of abnormal diffusion-weighted signal seen involving the left frontal lobe, with associated dark signal on the ADC maps. Mild developing T2 weighted signal can be seen at these sites. No intracranial bleeds or mass effects. There is cerebral volume loss for age. There are periventricular and deep white matter chronic small vessel ischemic changes. Brainstem appears normal. No chronic ischemic insults. Normal intravascular flow voids are present. Skull and face: Calvarial bone marrow is normal in signal. Orbits are normal. Note is made of bilateral lens replacements. Sinuses: Sinuses and mastoids are clear. IMPRESSION: There is abnormal diffusion-weighted signal seen at several small sites involving the frontal lobe, which is related to areas of subacute infarction. Prominent lateral ventricles, left worse than right. The degree of ventriculomegaly is larger than would be expected for the degree of sulcal atrophy. Please consider normal pressure hydrocephalus. Dictated by: Leodan Dorman M.D. on 06/30/2022 at 16:07 Approved by: Leodan Dorman M.D. on 06/30/2022 at 16:10
[2022-06-30] MEDS: ASPIRIN 81 MG CHEW TAB 324 MG PO (18:43)
[2022-06-30 19:54] LABS: Hemoglobin A1C% w Est Avg Glu 5.3 % (4.0-6.0)
[2022-06-30 20:07] LABS: NT-proBNP (BNP-Adult 18+) 242 pg/mL (<450)
[2022-06-30 20:25] LABS: Thyroid Stimulating Hormone 2.82 uIU/mL (0.47-4.68)
[2022-06-30] MEDS: ATORVASTATIN 20 MG TABLET 10 MG PO (20:44)
[2022-06-30] MEDS: SENNOSIDES 8.6 MG TABLET 17.2 MG PO (20:44)
[2022-06-30] MEDS: OXYBUTYNIN 5 MG ER TAB PO (20:44)
[2022-06-30 21:19] LABS: Magnesium 1.9 mg/dL (1.6-2.3)
[2022-06-30 21:32] LABS: Troponin I < 0.012 ng/mL (0.01-0.034)
[2022-06-30] MEDS: MAGNESIUM HYDROXIDE 30 ML UDC PO (23:13)
[2022-07-01] VITALS: BP 150/92; PULSE 88; RESP 18; TEMP 36.3; O2SAT 93
[2022-07-01 01:57] LABS: Troponin I 0.012 ng/mL (0.01-0.034)
--- NOTE | 2022-07-01 03:02 | PM.HP.1 ---
History of Present Illness History of Present Illness Date Patient Seen: 06/30/22 Time Patient Seen: 19:51 Chief complaint: Parkinsons/Rt Arm Numbness/Foggy/Dizzy Narrative: Jimmy Leis a 87-year-old male with history of Parkinson's disease, TIA, CKD, hypothyroidism, GERD, dyslipidemia and urinary retention, who presented to ED complaining of 2 - 3 days of right sided weakness, right arm and leg are both weaker than his left side.?Sudden onset, during the day, a bit dizzy but no syncope, no speech changes, no changes to his smile of which he states is chronically crooked.? He had something similar happen a couple months ago but resolved after some time.?Not on any anti Parkinson's medications or anticoagulants.? He follows with Dr. Mckee for his PCP.? Dr. Smallwood for Neurology in [place].?? No tobacco, 1 or 2 alcoholic drinks daily, no illicit. Patient was mildly hypertensive in ED 159/89, 153/112, 163/98. Initial NIH:2 majority of weakness noted with ambulation. At the time of admit patient states that symptoms have resolved. Patient denies headache, changes in vision, difficulty swallowing, difficulty with speech, numbness, lateralizing weakness, chest pain, shortness of breath, cough, sore throat, ear/eye discomfort, fever, body aches, chills, abdominal pain, nausea, vomiting, diarrhea, hematemesis, hematuria, melena, skin wounds or infection, difficulty with ambulation, balance, coordination, recent falls, head injury, LOC, recent illness injury or trauma. NIH:0-note did not have patient get out of bed & ambulate. Admit the/S temp 98.6?, BP 136/93, HR 91, R 16, O2 saturation 96% on room air. CBC WNL, CMP BUN 24, creatinine 1.75, glucose 150, GFR 37, total creatinine kinase 30, initial troponin WNL, tox screen, COVID are both negative. EKG: rate 86, P wave not appreciated with every QRS, QTC 464.? Right bundle-branch, left anterior fascicular block/bifascicular block.? No priors for comparison. Patient?outside tPA or code IR window.? Head CT and CT angiography do not show significant stenosis but there is some left greater than right ventriculomegaly with no obvious obstructive lesion. Brain MRI shows abnormal diffusion weighted signal at several small sites including the frontal lobe which is related to areas of subacute infarct, prominent ventricles left worse than right the degree of ventriculomegaly is larger than would be expected for degree of sulcal atrophy possible normal pressure hydrocephalus.? Neurology/Telestroke was consulted in ED. ED Consult:Dr. Kalyan Kc, neurology telestroke.? Would recommend switching from aspirin to Plavix 75 mg daily, does not recommend loading dose at this time he does recommend typical stroke workup in the hospital with echo, cardiac monitoring and patient is recommended to follow up as an outpatient for further workup of the potential hydrocephalus as this could be the cause of his Parkinson's like symptoms particularly if he does not have tremor present.? He can follow-up with them and their outpatient clinic or with his neurologist whichever is preferrable.? Patient admitted for stroke, frontal lobe infarction. Patient History Medical History Hx of skin cancer, basal cell Hypothyroid Kidney disease Parkinsons Surgical History History of hip replacement History of tonsillectomy and adenoidectomy Hx of appendectomy Hx of cataract surgery Hx of cholecystectomy Hx of knee surgery Hx of neck surgery Family & Social History Family History (Updated 07/01/22 @ 03:31 by FRANCISCO Beltrán) Father Hypertension Heart disease Cancer Mother due to natural causes Social History: household members spouse Prior Living Arrangements House Safety & Behavioral: Feels Safe in Current Yes Environment Been Physically Hurt or No Threatened By a Person Tobacco & Substance use: Smoking Status Never smoker alcohol intake current alcohol intake frequency 0-2 drinks per day Substance Use Type does not use Meds Home Medications and Allergies Home Medications Medication Instructions Recorded Confirmed Type acyclovir 200 mg capsule 400 mg PO BID 03/29/19 06/30/22 History aspirin 81 mg tablet,delayed 81 mg PO 3XW 03/29/19 06/30/22 History release (Adult Aspirin Regimen) atorvastatin 10 mg tablet 10 mg PO BEDTIME 03/29/19 06/30/22 History coenzyme Q10 100 mg capsule 200 mg PO DAILY 03/29/19 06/30/22 History (CoQ-10) hydralazine 10 mg tablet 10 mg PO USEASDIRECTD PRN 03/29/19 06/30/22 History Hypertension latanoprost 0.005 % eye drops 1 drp EYE-BOTH BEDTIME 03/29/19 06/30/22 History levothyroxine 100 mcg capsule 100 mcg PO DAILY 03/29/19 06/30/22 History omeprazole 40 mg capsule,delayed 40 mg PO DAILY 03/29/19 06/30/22 History release prednisone 20 mg tablet 20 mg PO DAILY PRN Gout 03/29/19 06/30/22 History cholecalciferol (vitamin D3) 50 50 mcg PO DAILY 06/30/22 06/30/22 History mcg (2,000 unit) capsule (Vitamin D3) cyanocobalamin (vitamin B-12) 1,000 mcg PO 3XW 06/30/22 06/30/22 History 1,000 mcg sublingual tablet ipratropium bromide 42 mcg (0.06 2 spray intranasal TID PRN Allergy 06/30/22 06/30/22 History %) nasal spray Symptoms magnesium hydroxide 400 mg/5 mL 5 ml PO Q OTHER DAY 06/30/22 06/30/22 History oral suspension (Milk of Magnesia) mirabegron 25 mg tablet,extended 25 mg PO BEDTIME 06/30/22 06/30/22 History release 24 hr (Myrbetriq) Allergies Allergy/AdvReac Type Severity Reaction Status Date / Time adhesive Allergy Mild BILSTERS Unverified 06/30/22 12:12 FROM TAPE Sulfa (Sulfonamide Allergy Unknown Unverified 06/30/22 12:12 Antibiotics) Review of Systems Review of Systems Narrative: All 12 point systems reviewed with the patient and are negative except otherwise documented. Exam Vital Signs (past 8 hours): - 06/30/22 19:35 07/01/22 00:00 Temperature 96.3 F L 97.4 F L Pulse Rate 91 H 88 Respiratory Rate 17 18 Blood Pressure 153/112 H 150/92 H Pulse Oximetry 97 93 Oxygen Flow Rate 0 0 Oxygen Delivery Method Room Air Oxygen Flow Rate 0 Narrative Exam Narrative: General: Patient is a well-developed, well-nourished in no distress at this time. HEENT: Normocephalic, atraumatic, extraocular muscles intact, oral pharynx is clear and mucous membranes are moist. Neck is supple and symmetric, trachea is midline, no adenopathy, no thyroid enlargement, nontender, no masses palpated. Negative for JVD Chest: Normal AP diameter and contour without kyphoscoliosis, no nasal flaring, retractions, or tachypneic labored Lungs: Auscultation of all lung thomason are clear without adventitious sounds, wheezes, rhonchi, or rales. Cardio: S1 & S2 with regular rate and rhythm without murmur, rubs, or gallops, no carotid bruit, no cardiac pulsations present. Abdomen: Soft nontender, negative for organomegaly, or masses. Bowel sounds are present in all 4 quadrants without guarding or rebound, no CVA tenderness. Musculoskeletal: Muscle strength and tone are equal within normal limits, no deformity, crepitus, effusions, cyanosis, clubbing or edema present. Full range of motion intact radial and pedal pulses are normal. Skin: Warm dry and intact without rashes, ulcerations or petechiae. Neuro: Alert and orientated x3, strength is +5/5 in all extremities, sensation to touch intact, no gross deficits noted of cranial nerves. NIH:0 Psych: Patient has a well-kept appearance, appropriate affect, mental status attitude thought context and judgment are appropriate for age. Objective Labs Result Diagrams: 06/30/22 12:05 06/30/22 12:05 Labs: Laboratory Results - last 24 hr 06/30/22 06/30/22 06/30/22 12:05 12:05 12:05 WBC 7.8 RBC 4.78 Hgb 15.3 Hct 45.3 MCV 94.9 MCH 31.9 MCHC 33.6 RDW 13.4 Plt Count 214 Neut % (Auto) 69.6 Lymph % (Auto) 18.7 L [place] % (Auto) 7.7 Eos % (Auto) 3.0 Baso % (Auto) 1.0 Neut # (Auto) 5400 Lymph # (Auto) 1500 [place] # (Auto) 600 Eos # (Auto) 200 Baso # (Auto) 100 PT 11.7 INR 1.0 APTT 31 Sodium 139 Potassium 3.8 Chloride 103 Carbon Dioxide 27 BUN 24 H Creatinine 1.75 H Estimated GFR 37 L BUN/Creatinine Ratio 13.7 Glucose 150 H Hemoglobin A1c Calcium 9.1 Magnesium Total Creatine Kinase 30 L CK-MB (CK-2) TNP CK-MB (CK-2) Rel Index TNP Troponin I < 0.012 NT-Pro-B Natriuret Pep TSH Urine RBC Urine WBC Urine Bacteria Ur Culture Indicated? U Opiates 300ng/mL cut Ur Oxycodone Screen Urine Methadone Screen Ur Barbiturates Screen U Tricyclic Antidepress Ur Phencyclidine Scrn Ur Amphetamines Screen U Methamphetamines Scrn Ur MDMA Scrn (Ecstasy) U Benzodiazepines Scrn Urine Cocaine Screen U Marijuana (THC) Screen SARS-CoV-2 (PCR) 06/30/22 06/30/22 06/30/22 12:05 12:05 12:05 WBC RBC Hgb Hct MCV MCH MCHC RDW Plt Count Neut % (Auto) Lymph % (Auto) [place] % (Auto) Eos % (Auto) Baso % (Auto) Neut # (Auto) Lymph # (Auto) [place] # (Auto) Eos # (Auto) Baso # (Auto) PT INR APTT Sodium Potassium Chloride Carbon Dioxide BUN Creatinine Estimated GFR BUN/Creatinine Ratio Glucose Hemoglobin A1c 5.3 Calcium Magnesium 2.0 Total Creatine Kinase CK-MB (CK-2) CK-MB (CK-2) Rel Index Troponin I NT-Pro-B Natriuret Pep TSH 2.82 Urine RBC Urine WBC Urine Bacteria Ur Culture Indicated? U Opiates 300ng/mL cut Ur Oxycodone Screen Urine Methadone Screen Ur Barbiturates Screen U Tricyclic Antidepress Ur Phencyclidine Scrn Ur Amphetamines Screen U Methamphetamines Scrn Ur MDMA Scrn (Ecstasy) U Benzodiazepines Scrn Urine Cocaine Screen U Marijuana (THC) Screen SARS-CoV-2 (PCR) 06/30/22 06/30/22 06/30/22 12:05 12:27 13:24 WBC RBC Hgb Hct MCV MCH MCHC RDW Plt Count Neut % (Auto) Lymph % (Auto) [place] % (Auto) Eos % (Auto) Baso % (Auto) Neut # (Auto) Lymph # (Auto) [place] # (Auto) Eos # (Auto) Baso # (Auto) PT INR APTT Sodium Potassium Chloride Carbon Dioxide BUN Creatinine Estimated GFR BUN/Creatinine Ratio Glucose Hemoglobin A1c Calcium Magnesium Total Creatine Kinase CK-MB (CK-2) CK-MB (CK-2) Rel Index Troponin I NT-Pro-B Natriuret Pep 242 TSH Urine RBC None seen Urine WBC 1-5/hpf Urine Bacteria None seen Ur Culture Indicated? Specimen cultured U Opiates 300ng/mL cut Ur Oxycodone Screen Urine Methadone Screen Ur Barbiturates Screen U Tricyclic Antidepress Ur Phencyclidine Scrn Ur Amphetamines Screen U Methamphetamines Scrn Ur MDMA Scrn (Ecstasy) U Benzodiazepines Scrn Urine Cocaine Screen U Marijuana (THC) Screen SARS-CoV-2 (PCR) Negative 06/30/22 06/30/22 06/30/22 13:52 20:58 20:58 WBC RBC Hgb Hct MCV MCH MCHC RDW Plt Count Neut % (Auto) Lymph % (Auto) [place] % (Auto) Eos % (Auto) Baso % (Auto) Neut # (Auto) Lymph # (Auto) [place] # (Auto) Eos # (Auto) Baso # (Auto) PT INR APTT Sodium Potassium Chloride Carbon Dioxide BUN Creatinine Estimated GFR BUN/Creatinine Ratio Glucose Hemoglobin A1c Calcium Magnesium 1.9 Total Creatine Kinase CK-MB (CK-2) CK-MB (CK-2) Rel Index Troponin I < 0.012 NT-Pro-B Natriuret Pep TSH Urine RBC Urine WBC Urine Bacteria Ur Culture Indicated? U Opiates 300ng/mL cut Negative Ur Oxycodone Screen Negative Urine Methadone Screen Negative Ur Barbiturates Screen Negative U Tricyclic Antidepress Negative Ur Phencyclidine Scrn Negative Ur Amphetamines Screen Negative U Methamphetamines Scrn Negative Ur MDMA Scrn (Ecstasy) Negative U Benzodiazepines Scrn Negative Urine Cocaine Screen Negative U Marijuana (THC) Screen Negative SARS-CoV-2 (PCR) 07/01/22 01:28 WBC RBC Hgb Hct MCV MCH MCHC RDW Plt Count Neut % (Auto) Lymph % (Auto) [place] % (Auto) Eos % (Auto) Baso % (Auto) Neut # (Auto) Lymph # (Auto) [place] # (Auto) Eos # (Auto) Baso # (Auto) PT INR APTT Sodium Potassium Chloride Carbon Dioxide BUN Creatinine Estimated GFR BUN/Creatinine Ratio Glucose Hemoglobin A1c Calcium Magnesium Total Creatine Kinase CK-MB (CK-2) CK-MB (CK-2) Rel Index Troponin I 0.012 NT-Pro-B Natriuret Pep TSH Urine RBC Urine WBC Urine Bacteria Ur Culture Indicated? U Opiates 300ng/mL cut Ur Oxycodone Screen Urine Methadone Screen Ur Barbiturates Screen U Tricyclic Antidepress Ur Phencyclidine Scrn Ur Amphetamines Screen U Methamphetamines Scrn Ur MDMA Scrn (Ecstasy) U Benzodiazepines Scrn Urine Cocaine Screen U Marijuana (THC) Screen SARS-CoV-2 (PCR) Assessment & Plan Assessment & Plan narrative: Jimmy Leis a 87-year-old male with history of Parkinson's disease, TIA, CKD, hypothyroidism, GERD, dyslipidemia and urinary retention, who presented to ED complaining of 2 - 3 days of right sided weakness, right arm and leg are both weaker than his left side. Patient admitted for stroke, frontal lobe infarction. 1. Stroke, acute, frontal lobe infarction, with a history of TIA, present on admission -ED NIH:2, Admit NIH:0 -Patient admitted under stroke protocol-assess neuro, NIH per protocol, aspiration precautions, bedside swallow -neurological/tele stroke consult in ED: Patient was outside tPA or Code IR window temp 98.6?, BP 136/93, HR 91, R 16, O2 saturation 96% on room air. -troponin WNL, tox screen, COVID are both negative. -EKG: rate 86, P wave not appreciated with every QRS, QTC 464.? Right bundle-branch, left anterior fascicular block/bifascicular block.? No priors for comparison. -Head CT and CT angiography do not show significant stenosis but there is some left greater than right ventriculomegaly with no obvious obstructive lesion. Brain MRI shows abnormal diffusion weighted signal at several small sites including the frontal lobe which is related to areas of subacute infarct, prominent ventricles left worse than right the degree of ventriculomegaly is larger than would be expected for degree of sulcal atrophy possible normal pressure hydrocephalus. -PT/OT/speech consult ordered -echo ordered -ordered BNP, A1c, TSH, trend troponin x3, Mag, lipid -stopped aspirin changed to Plavix 75 mg -ED Consult:Dr. Kalyan Kc, neurology telestroke.? Would recommend switching from aspirin to Plavix 75 mg daily 2.Potential hydrocephalus, as evidence by MRI imaging, acute, in the setting of Parkinson's, acute on chronic present on admission -as this could be the cause of his Parkinson's like symptoms particularly if he does not have tremor present. -referral to neurology for further evaluation and workup on discharge? 3. Chronic kidney disease stage G3b, acute on chronic, present on admission -Today:BUN 24, creatinine 1.75, glucose 150, GFR 37, total creatinine kinase 30 -review of laboratory history from 2021 current creatinine 1.85-2.02, BUN 24-30, GFR 31.6-35.6 -avoid nephrotoxic medications 4. Hyperlipidemia, chronic, present on admission -lipid panel ordered -continue Lipitor 5. Hypothyroidism, acquired, present on admission -TSH ordered -continue levothyroxine 6. GERD, chronic, present on admission -because patient is being placed on Plavix instead of aspirin will need to stop patient's omeprazole due to risk of interaction, patient to receive Protonix while in hospital sent home with a prescription for protonix instead of omperazole. 7. Overweight, acute on chronic, present on admission -dietary consult ordered regarding nutritional education and information for dietary, lifestyle, exercise, and weight changes. -the patient is at much higher risk for medical and surgical complications due to being overweight as it relates to his chronic illnesses:, and acute stroke. The patient's weight increases the difficulty and complexity of medical and/or surgical interventions, management and increases the chances of poor outcome such as morbidity and mortality. Code status:Limited DNI Surrogate decision maker: Kinga Carrera COVID PCR:Negative COVID vaccination: Fully vaccinated and boosted DVT/VTE prophylaxis: Lovenox and SCDs Disposition: Patient admitted for stroke, expected length of stay greater than 2 midnights I have utilized all available immediate resources to obtain, update, or review the patient's current medications. I confirmed that the patient's advanced care plan is present, Code status is documented and/or surrogate decision maker is listed in the patient's medical record. I have personally reviewed patient's chart notes from PCP, specialists, diagnostic imaging, and laboratory, Time Spent With Patient Critical Care time: I spent a total of [] minutes of critical care time on this patient's care today; this time is exclusive of procedural time. Quality VTE Deep Vein Thrombosis/Pulmonary Embolism Present on Admission: No
[2022-07-01 03:15] VITALS: BP 136/84; PULSE 75; RESP 16; TEMP 36.3; O2SAT 94
--- NOTE | 2022-07-01 04:31 | PC.NURSE ---
Pt is AxOx4, needs STA and cooperative. VSS, pt denies pain. Pt is eating well and slept well. NIH score was 1 due to facial droop. However, this facial droop is not new to pt. Pt stated that he has had this for a long time due to his Parkinson's. Tele showed SR. Pt is voiding in his urinal. No other changes. Continue monitor.
[2022-07-01] MEDS: LEVOTHYROXINE 100 MCG TABLET PO (05:16)
[2022-07-01] MEDS: PANTOPRAZOLE DR 40 MG TABLET PO (05:16)
[2022-07-01 06:18] LABS: Add Manual Diff / Slide Review NO; Basophils Absolute Auto 100 /uL (0-100); Eosinophils Absolute Auto 200 /uL (0-450); Eosinophils Percent Auto 2.4 % (2-4); Hematocrit 44.9 % (41-53); Hemoglobin 15.1 g/dL (13.5-17.5); Lymphocytes Absolute Auto 1900 /uL (1100-4500); Lymphocytes Percent Auto 22.1 % (25-40); Mean Corpuscular HGB Conc 33.6 % (30-36); Mean Corpuscular Hemoglobin 31.9 PG (26-34); Mean Corpuscular Volume 94.9 fL (80-100); Monocytes Absolute Auto 600 /uL (0-900); Monocytes Percent Auto 7.1 % (3-14); Neutrophils Absolute Auto 5800 /uL (1500-7000); Neutrophils Percent Auto 67.4 % (50-75); Platelet Count 209 X10^3/uL (150-400); Red Blood Cell Count 4.74 X10^6/uL (4.5-5.9); Red Cell Distribution Width 13.6 % (11.6-14.8); White Blood Cell Count 8.7 X10^3/uL (4.5-11.0)
[2022-07-01 06:22] LABS: Prothrombin Time 11.9 SECONDS (10.1-12.7)
[2022-07-01 06:29] LABS: Cholesterol 178 mg/dL (140-199); HDL Cholesterol 41 mg/dL (40-60); LDL Cholesterol Calculated 97 mg/dL (<100); Triglycerides 200 mg/dL (35-150)
[2022-07-01 06:30] LABS: Alanine Aminotransferase 15 IU/L (<50); Albumin 3.5 g/dL (3.5-5.0); Albumin Globulin Ratio 1.2 (1.0-2.8); Alkaline Phosphatase 71 U/L (38-126); Aspartate Aminotransferase 19 IU/L (17-59); BUN Creatinine Ratio 14.1 (6-22); Bilirubin Total 0.7 mg/dL (0.2-1.3); Blood Urea Nitrogen 26 mg/dL (9-20); Carbon Dioxide 28 mmol/L (22-32); Chloride 105 mmol/L (98-107); Estimated Glomerular Filt Rate 35 mL/min (>60); Globulin 2.9 g/dL (1.7-4.1); Glucose 69 mg/dL (80-110); HEMOLYSIS 17 (0-50); Potassium 4.4 mmol/L (3.4-5.1); Sodium 142 mmol/L (137-145); Total Protein 6.4 g/dL (6.3-8.2)
--- NOTE | 2022-07-01 08:31 | PM.DS.1 ---
History of Present Illness History of Present Illness Date Patient Seen: 07/01/22 Time Patient Seen: 11:00 Chief complaint: Parkinsons/Rt Arm Numbness/Foggy/Dizzy Narrative: Jimmy Leis a 87-year-old male with history of Parkinson's disease, TIA, CKD, hypothyroidism, GERD, dyslipidemia and urinary retention, who presented to ED complaining of 2 - 3 days of right sided weakness, right arm and leg are both weaker than his left side.?Sudden onset, during the day, a bit dizzy but no syncope, no speech changes, no changes to his smile of which he states is chronically crooked.? He had something similar happen a couple months ago but resolved after some time.?Not on any anti Parkinson's medications or anticoagulants.? He follows with Dr. Mckee for his PCP.? Dr. Smallwood for Neurology in [place].?? No tobacco, 1 or 2 alcoholic drinks daily, no illicit.? Patient was mildly hypertensive in ED 159/89, 153/112, 163/98. Initial NIH:2 majority of weakness noted with ambulation. At the time of admit patient states that symptoms have resolved.? Patient denies headache, changes in vision, difficulty swallowing, difficulty with speech, numbness, lateralizing weakness, chest pain, shortness of breath, cough, sore throat, ear/eye discomfort, fever, body aches, chills, abdominal pain, nausea, vomiting, diarrhea, hematemesis, hematuria, melena, skin wounds or infection, difficulty with ambulation, balance, coordination, recent falls, head injury, LOC, recent illness injury or trauma. NIH:0-note did not have patient get out of bed & ambulate. Admit the/S temp 98.6?, BP 136/93, HR 91, R 16, O2 saturation 96% on room air.? CBC WNL, CMP BUN 24, creatinine 1.75, glucose 150, GFR 37, total creatinine kinase 30, initial troponin WNL, tox screen, COVID are both negative. EKG: rate 86, P wave not appreciated with every QRS, QTC 464.? Right bundle-branch, left anterior fascicular block/bifascicular block.? No priors for comparison. Patient?outside tPA or code IR window.? Head CT and CT angiography do not show significant stenosis but there is some left greater than right ventriculomegaly with no obvious obstructive lesion. Brain MRI shows abnormal diffusion weighted signal at several small sites including the frontal lobe which is related to areas of subacute infarct, prominent ventricles left worse than right the degree of ventriculomegaly is larger than would be expected for degree of sulcal atrophy possible normal pressure hydrocephalus.? Neurology/Telestroke was consulted in ED. ED Consult:Dr. Kalyan Kc, neurology telestroke.? Would recommend switching from aspirin to Plavix 75 mg daily, does not recommend loading dose at this time he does recommend typical stroke workup in the hospital with echo, cardiac monitoring and patient is recommended to follow up as an outpatient for further workup of the potential hydrocephalus as this could be the cause of his Parkinson's like symptoms particularly if he does not have tremor present.? He can follow-up with them and their outpatient clinic or with his neurologist whichever is preferrable.? Patient admitted for stroke, frontal lobe infarction. Discharge Providers Provider Date of admission: 06/30/22 18:29 Discharge Date: 07/01/22 Primary care physician: Santana Mckee MD Consults: 06/30/22 19:27 Consult to Discharge Planning Routine Comment: Consult to Occupational Therapy Evaluate & Treat Comment: Physician Instructions: Evaluate and treat Consult to Physical Therapy Evaluate & Treat Comment: Physician Instructions: Evaluate and Treat Consult to Speech Therapy Evaluate & Treat Comment: Physician Instructions: Evaluate and treat 06/30/22 19:45 Consult to Dietitian, Adult Routine Comment: Reason For Exam: stroke, BMI 30.6 Discharge provider: Alli Harmon DO Summary Hospital Course Discharge Diagnosis: 1. Stroke, acute, frontal lobe infarction, with a history of TIA, present on admission -ED NIH:2, Admit NIH:0 -Patient admitted under stroke protocol-assess neuro, NIH per protocol, aspiration precautions, bedside swallow -neurological/tele stroke consult in ED:? Patient was outside tPA or Code IR window? -Head CT and CT angiography do not show significant stenosis but there is some left greater than right ventriculomegaly with no obvious obstructive lesion. Brain MRI shows abnormal diffusion weighted signal at several small sites including the frontal lobe which is related to areas of subacute infarct, prominent ventricles left worse than right the degree of ventriculomegaly is larger than would be expected for degree of sulcal atrophy possible normal pressure hydrocephalus. -PT/OT/speech consulted and cleared -echo was delayed and patient already had outpatient echo scheduled so he deferred to have it done as outpatient then -ED Consult: Dr. Kalyan Kc, neurology telestroke.? Would recommend switching from aspirin to Plavix 75 mg daily? 2.Potential hydrocephalus, as evidence by MRI imaging, acute, in the setting of Parkinson's, acute on chronic present on admission -as this could be the cause of his Parkinson's like symptoms particularly if he does not have tremor present. -referral to neurology for further evaluation and workup on discharge? -MRI images sent on disc with patient to show his neurologist 3. Chronic kidney disease stage G3b, acute on chronic, present on admission -Today:BUN 24, creatinine 1.75, glucose 150, GFR 37, total creatinine kinase 30 -review of laboratory history from 2021 current creatinine 1.85-2.02, BUN 24-30, GFR 31.6-35.6 -avoid nephrotoxic medications 4. Hyperlipidemia, chronic, present on admission -LDL 97 -continue Lipitor 5. Hypothyroidism, acquired, present on admission -TSH 2.82 -continue levothyroxine 6. GERD, chronic, present on admission -because patient is being placed on Plavix instead of aspirin will need to stop patient's omeprazole due to risk of interaction, patient to receive Protonix while in hospital sent home with a prescription for protonix instead of omperazole. 7.? Overweight, acute on chronic, present on admission -dietary consult ordered regarding nutritional education and information for dietary, lifestyle, exercise, and weight changes. -the patient is at much higher risk for medical and surgical complications due to being overweight as it relates to his chronic illnesses:, and acute stroke.? The patient's weight increases the difficulty and complexity of medical and/or surgical interventions, management and increases the chances of poor outcome such as morbidity and mortality. Hospital Course: Admitted for acute stroke-like symptoms and found to have subacute left frontal strokes on MRI. Aspirin was switched to plavix per telestroke recs. Was out of window for tPA. He did well with therapies and was cleared for home. Echo ordered but was delayed due to need for echos in the ED, so patient's preferred he get it done as outpatient as they have one scheduled for the near future already. Patient preferred to return home then wait. His home omeprazole was switched to protonix on discharge due to interaction with plavix. MRI also showed potential NPH so a disc with the images were sent per 's request with her so they can show their neurologist and get their opinion on if further workup of NPH would be warranted. Time Spent with Patient Time spent: Greater than 30 minutes Exam Vital Signs (past 8 hours): - 07/01/22 03:15 Temperature 97.4 F L Pulse Rate 75 Respiratory Rate 16 Blood Pressure 136/84 Pulse Oximetry 94 Oxygen Flow Rate 0 Oxygen Delivery Method Room Air Oxygen Flow Rate 0 Narrative Exam Narrative: General: Patient is a well-developed, well-nourished in no distress at this time. HEENT: Normocephalic, atraumatic, extraocular muscles intact, oral pharynx is clear and mucous membranes are moist. Neck is supple and symmetric, trachea is midline, no adenopathy, no thyroid enlargement, nontender, no masses palpated. Negative for JVD Chest: Normal AP diameter and contour without kyphoscoliosis, no nasal flaring, retractions, or tachypneic labored Lungs: Auscultation of all lung thomason are clear without adventitious sounds, wheezes, rhonchi, or rales. Cardio: S1 & S2 with regular rate and rhythm without murmur, rubs, or gallops, no carotid bruit, no cardiac pulsations present. Abdomen: Soft nontender, negative for organomegaly, or masses. Bowel sounds are present in all 4 quadrants without guarding or rebound, no CVA tenderness. Musculoskeletal: Muscle strength and tone are equal within normal limits, no deformity, crepitus, effusions, cyanosis, clubbing or edema present. Full range of motion intact radial and pedal pulses are normal. Skin: Warm dry and intact without rashes, ulcerations or petechiae. Neuro: Alert and orientated x3, strength is +5/5 in all extremities, sensation to touch intact, no gross deficits noted of cranial nerves. NIH:0 Psych: Patient has a well-kept appearance, appropriate affect, mental status attitude thought context and judgment are appropriate for age. Objective Labs Result Diagrams: 07/01/22 06:00 07/01/22 06:00 Labs: Laboratory Results - last 24 hr 06/30/22 06/30/22 06/30/22 12:05 12:05 12:05 WBC 7.8 RBC 4.78 Hgb 15.3 Hct 45.3 MCV 94.9 MCH 31.9 MCHC 33.6 RDW 13.4 Plt Count 214 Neut % (Auto) 69.6 Lymph % (Auto) 18.7 L [place] % (Auto) 7.7 Eos % (Auto) 3.0 Baso % (Auto) 1.0 Neut # (Auto) 5400 Lymph # (Auto) 1500 [place] # (Auto) 600 Eos # (Auto) 200 Baso # (Auto) 100 PT 11.7 INR 1.0 APTT 31 Sodium 139 Potassium 3.8 Chloride 103 Carbon Dioxide 27 BUN 24 H Creatinine 1.75 H Estimated GFR 37 L BUN/Creatinine Ratio 13.7 Glucose 150 H Hemoglobin A1c Calcium 9.1 Magnesium Total Bilirubin AST ALT Alkaline Phosphatase Total Creatine Kinase 30 L CK-MB (CK-2) TNP CK-MB (CK-2) Rel Index TNP Troponin I < 0.012 NT-Pro-B Natriuret Pep Total Protein Albumin Globulin Albumin/Globulin Ratio Triglycerides Cholesterol LDL Cholesterol, Calc HDL Cholesterol TSH Urine RBC Urine WBC Urine Bacteria Ur Culture Indicated? U Opiates 300ng/mL cut Ur Oxycodone Screen Urine Methadone Screen Ur Barbiturates Screen U Tricyclic Antidepress Ur Phencyclidine Scrn Ur Amphetamines Screen U Methamphetamines Scrn Ur MDMA Scrn (Ecstasy) U Benzodiazepines Scrn Urine Cocaine Screen U Marijuana (THC) Screen SARS-CoV-2 (PCR) 06/30/22 06/30/22 06/30/22 12:05 12:05 12:05 WBC RBC Hgb Hct MCV MCH MCHC RDW Plt Count Neut % (Auto) Lymph % (Auto) [place] % (Auto) Eos % (Auto) Baso % (Auto) Neut # (Auto) Lymph # (Auto) [place] # (Auto) Eos # (Auto) Baso # (Auto) PT INR APTT Sodium Potassium Chloride Carbon Dioxide BUN Creatinine Estimated GFR BUN/Creatinine Ratio Glucose Hemoglobin A1c 5.3 Calcium Magnesium 2.0 Total Bilirubin AST ALT Alkaline Phosphatase Total Creatine Kinase CK-MB (CK-2) CK-MB (CK-2) Rel Index Troponin I NT-Pro-B Natriuret Pep Total Protein Albumin Globulin Albumin/Globulin Ratio Triglycerides Cholesterol LDL Cholesterol, Calc HDL Cholesterol TSH 2.82 Urine RBC Urine WBC Urine Bacteria Ur Culture Indicated? U Opiates 300ng/mL cut Ur Oxycodone Screen Urine Methadone Screen Ur Barbiturates Screen U Tricyclic Antidepress Ur Phencyclidine Scrn Ur Amphetamines Screen U Methamphetamines Scrn Ur MDMA Scrn (Ecstasy) U Benzodiazepines Scrn Urine Cocaine Screen U Marijuana (THC) Screen SARS-CoV-2 (PCR) 06/30/22 06/30/22 06/30/22 12:05 12:27 13:24 WBC RBC Hgb Hct MCV MCH MCHC RDW Plt Count Neut % (Auto) Lymph % (Auto) [place] % (Auto) Eos % (Auto) Baso % (Auto) Neut # (Auto) Lymph # (Auto) [place] # (Auto) Eos # (Auto) Baso # (Auto) PT INR APTT Sodium Potassium Chloride Carbon Dioxide BUN Creatinine Estimated GFR BUN/Creatinine Ratio Glucose Hemoglobin A1c Calcium Magnesium Total Bilirubin AST ALT Alkaline Phosphatase Total Creatine Kinase CK-MB (CK-2) CK-MB (CK-2) Rel Index Troponin I NT-Pro-B Natriuret Pep 242 Total Protein Albumin Globulin Albumin/Globulin Ratio Triglycerides Cholesterol LDL Cholesterol, Calc HDL Cholesterol TSH Urine RBC None seen Urine WBC 1-5/hpf Urine Bacteria None seen Ur Culture Indicated? Specimen cultured U Opiates 300ng/mL cut Ur Oxycodone Screen Urine Methadone Screen Ur Barbiturates Screen U Tricyclic Antidepress Ur Phencyclidine Scrn Ur Amphetamines Screen U Methamphetamines Scrn Ur MDMA Scrn (Ecstasy) U Benzodiazepines Scrn Urine Cocaine Screen U Marijuana (THC) Screen SARS-CoV-2 (PCR) Negative 06/30/22 06/30/22 06/30/22 13:52 20:58 20:58 WBC RBC Hgb Hct MCV MCH MCHC RDW Plt Count Neut % (Auto) Lymph % (Auto) [place] % (Auto) Eos % (Auto) Baso % (Auto) Neut # (Auto) Lymph # (Auto) [place] # (Auto) Eos # (Auto) Baso # (Auto) PT INR APTT Sodium Potassium Chloride Carbon Dioxide BUN Creatinine Estimated GFR BUN/Creatinine Ratio Glucose Hemoglobin A1c Calcium Magnesium 1.9 Total Bilirubin AST ALT Alkaline Phosphatase Total Creatine Kinase CK-MB (CK-2) CK-MB (CK-2) Rel Index Troponin I < 0.012 NT-Pro-B Natriuret Pep Total Protein Albumin Globulin Albumin/Globulin Ratio Triglycerides Cholesterol LDL Cholesterol, Calc HDL Cholesterol TSH Urine RBC Urine WBC Urine Bacteria Ur Culture Indicated? U Opiates 300ng/mL cut Negative Ur Oxycodone Screen Negative Urine Methadone Screen Negative Ur Barbiturates Screen Negative U Tricyclic Antidepress Negative Ur Phencyclidine Scrn Negative Ur Amphetamines Screen Negative U Methamphetamines Scrn Negative Ur MDMA Scrn (Ecstasy) Negative U Benzodiazepines Scrn Negative Urine Cocaine Screen Negative U Marijuana (THC) Screen Negative SARS-CoV-2 (PCR) 07/01/22 07/01/22 07/01/22 01:28 06:00 06:00 WBC 8.7 RBC 4.74 Hgb 15.1 Hct 44.9 MCV 94.9 MCH 31.9 MCHC 33.6 RDW 13.6 Plt Count 209 Neut % (Auto) 67.4 Lymph % (Auto) 22.1 L [place] % (Auto) 7.1 Eos % (Auto) 2.4 Baso % (Auto) 1.0 Neut # (Auto) 5800 Lymph # (Auto) 1900 [place] # (Auto) 600 Eos # (Auto) 200 Baso # (Auto) 100 PT INR APTT Sodium Potassium Chloride Carbon Dioxide BUN Creatinine Estimated GFR BUN/Creatinine Ratio Glucose Hemoglobin A1c Calcium Magnesium Total Bilirubin AST ALT Alkaline Phosphatase Total Creatine Kinase CK-MB (CK-2) CK-MB (CK-2) Rel Index Troponin I 0.012 NT-Pro-B Natriuret Pep Total Protein Albumin Globulin Albumin/Globulin Ratio Triglycerides 200 H Cholesterol 178 LDL Cholesterol, Calc 97 HDL Cholesterol 41 TSH Urine RBC Urine WBC Urine Bacteria Ur Culture Indicated? U Opiates 300ng/mL cut Ur Oxycodone Screen Urine Methadone Screen Ur Barbiturates Screen U Tricyclic Antidepress Ur Phencyclidine Scrn Ur Amphetamines Screen U Methamphetamines Scrn Ur MDMA Scrn (Ecstasy) U Benzodiazepines Scrn Urine Cocaine Screen U Marijuana (THC) Screen SARS-CoV-2 (PCR) 07/01/22 07/01/22 06:00 06:00 WBC RBC Hgb Hct MCV MCH MCHC RDW Plt Count Neut % (Auto) Lymph % (Auto) [place] % (Auto) Eos % (Auto) Baso % (Auto) Neut # (Auto) Lymph # (Auto) [place] # (Auto) Eos # (Auto) Baso # (Auto) PT 11.9 INR 1.0 APTT Sodium 142 Potassium 4.4 Chloride 105 Carbon Dioxide 28 BUN 26 H Creatinine 1.84 H Estimated GFR 35 L BUN/Creatinine Ratio 14.1 Glucose 69 L Hemoglobin A1c Calcium 9.0 Magnesium Total Bilirubin 0.7 AST 19 ALT 15 Alkaline Phosphatase 71 Total Creatine Kinase CK-MB (CK-2) CK-MB (CK-2) Rel Index Troponin I NT-Pro-B Natriuret Pep Total Protein 6.4 Albumin 3.5 Globulin 2.9 Albumin/Globulin Ratio 1.2 Triglycerides Cholesterol LDL Cholesterol, Calc HDL Cholesterol TSH Urine RBC Urine WBC Urine Bacteria Ur Culture Indicated? U Opiates 300ng/mL cut Ur Oxycodone Screen Urine Methadone Screen Ur Barbiturates Screen U Tricyclic Antidepress Ur Phencyclidine Scrn Ur Amphetamines Screen U Methamphetamines Scrn Ur MDMA Scrn (Ecstasy) U Benzodiazepines Scrn Urine Cocaine Screen U Marijuana (THC) Screen SARS-CoV-2 (PCR) PFSH Medical History Hx of skin cancer, basal cell Hypothyroid Kidney disease Parkinsons Surgical History History of hip replacement History of tonsillectomy and adenoidectomy Hx of appendectomy Hx of cataract surgery Hx of cholecystectomy Hx of knee surgery Hx of neck surgery Family History (Updated 07/01/22 @ 03:31 by FRANCISCO Beltrán) Father Hypertension Heart disease Cancer Mother due to natural causes Social History marital status: household members: spouse occupational status: previously employed Smoking Status: Never smoker alcohol intake: current substance use type: does not use Discharge Plan Discharge Plan Patient Disposition: Home Nursing Discharge Comment: Make follow up appointment with your primary care provider with in the week. Take films with you. You will need a referal for a cardiac echo. Discharge orders & Medications Prescriptions: New clopidogrel 75 mg Tablet 75 mg PO DAILY Qty: 90 0RF Continued levothyroxine 100 mcg capsule 100 mcg PO DAILY acyclovir 200 mg capsule 400 mg PO BID Rx Instructions: afternoon and bedtime atorvastatin 10 mg tablet 10 mg PO BEDTIME coenzyme Q10 [CoQ-10] 100 mg capsule 200 mg PO DAILY omeprazole 40 mg capsule,delayed release(DR/EC) 40 mg PO DAILY Rx Instructions: mid day latanoprost 0.005 % drops 1 drp EYE-BOTH BEDTIME prednisone 20 mg tablet 20 mg PO DAILY PRN (Reason: Gout) hydralazine 10 mg tablet 10 mg PO USEASDIRECTD PRN (Reason: Hypertension) Rx Instructions: take as needed for systolic BP> 160. take 1 every 30 minutes until blood pressure is lowered magnesium hydroxide [Milk of Magnesia] 400 mg/5 mL Suspension 5 ml PO Q OTHER DAY Rx Instructions: at bedtime cyanocobalamin (vitamin B-12) 1,000 mcg Tablet, Sublingual 1,000 mcg PO 3XW Rx Instructions: thursday, thursday, thursday ipratropium bromide 42 mcg (0.06 %) spray,non-aerosol 2 spray INTRANASAL TID PRN (Reason: Allergy Symptoms) Label Comments: USE 2 SPRAYS IN EACH NOSTRIL 3 TIMES DAILY NEEDED FOR RHINORRHEA cholecalciferol (vitamin D3) [Vitamin D3] 50 mcg (2,000 unit) Capsule 50 mcg PO DAILY Rx Instructions: mid day Myrbetriq 25 mg tablet extended release 24 hr 25 mg PO BEDTIME Label Comments: take 1 tablet by mouth once daily Discontinued aspirin [Adult Aspirin Regimen] 81 mg tablet,delayed release (DR/EC) 81 mg PO 3XW Rx Instructions: thursday, thursday, thursday Follow up/Referrals: Santana Mckee MD [Primary Care Provider] - 1 Week Visit Report/Discharge Packet Instructions: Eating a Diet Low in Saturated Fat, Trans Fat, and Cholesterol, Hydrocephalus, DI for Stroke-Ischemic, How to Prevent Falls Discharge Data Primary Care Provider: Santana Mckee Quality VTE Deep Vein Thrombosis/Pulmonary Embolism Present on Admission: No
[2022-07-01 09:02] VITALS: BP 165/96; PULSE 77; RESP 16; TEMP 36.6; O2SAT 94
[2022-07-01] MEDS: ENOXAPARIN 30 MG/0.3 ML SYRINGE SUBCUT (09:38)
[2022-07-01] MEDS: CLOPIDOGREL 75 MG TABLET PO (09:39)
--- NOTE | 2022-07-01 10:29 | PT.IIE ---
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 History of hip replacement History of tonsillectomy and adenoidectomy Hx of appendectomy Hx of cataract surgery Hx of cholecystectomy Hx of knee surgery Hx of neck surgery Medical History (Last Reviewed 07/01/22 @ 03:30 by ANN-MARIE Beltrán) Hx of skin cancer, basal cell Hypothyroid Kidney disease Parkinsons Physical Therapy Inpatient Evaluation/Re-Eval M1 PT/OT-IP Prior Functional Status Start: 07/01/22 10:16 Freq: NEEDED Status: Active Protocol: Document 07/01/22 10:16 SAK (Rec: 07/01/22 10:29 [facility] [id number]) Medical Review Prior Functional Status Medical History Reviewed Yes Diet/Fluid Consistency Regular Communication no limitations Mobility and Gait uses straight cane or 4WW Activities of Daily Living and IADL's modified independent Social History Household Members spouse Living Arrangements House Number of Floors (Floors) One Floor Number of Stairs To Enter/Railing? 1, railing Home Environment Standard Height Toilet,Tub/ Shower Home Equipment Four Wheel Walker,Straight Cane,Grab Bars Near Toilet, Grab Bars In Shower M2 PT-IP Current Condition Start: 07/01/22 10:16 Freq: NEEDED Status: Active Protocol: Document 07/01/22 10:16 SAK (Rec: 07/01/22 10:29 [facility] [id number]) Physical Therapy Current Condition Current Condition Evaluation Date 07/01/22 Treatment Diagnosis TIA Onset Date 07/01/22 M3 PT-IP Subjective Start: 07/01/22 10:16 Freq: NEEDED Status: Active Protocol: Document 07/01/22 10:16 SAK (Rec: 07/01/22 10:29 [facility] [id number]) Subjective Physical Therapy Visit Type Type Initial Evaluation Visit Start Time 09:55 Visit Stop Time 10:15 Total Visit Minutes 20 Number of PIPELINE WELDER Visits 0 Physical Therapy Visit Comments Patient Comments Patient feels like he's mostly back to normal, feels tired, hopes to go home today. Doing PT 2x/wk at [facility] in [place], had to cancel appt yesterday. Patient Goals go home today. Therapy Pain Assessment Pain When Pain Assessed At Rest Location left hip Description Aching,Chronic,Tender Pain Behaviors Wincing M4 PT-IP Mobility and Gait Start: 07/01/22 10:16 Freq: NEEDED Status: Active Protocol: Document 07/01/22 10:16 SAK (Rec: 07/01/22 10:29 [facility] [id number]) PT-Bed Mobility Assessment Supine to Sit Supine to Sit Standby Assistance PT-Transfer Assessment Sit to and From Stand Sit to and from Stand Standby Assistance Equipment Transfer Assistive Device Gait Belt,Front Wheeled Walker Transfers Transfer Destination Bed Transfer Ability Level of Assist Standby Assistance Comments Mobility Comments cues for safe hand placement with transfer Gait Assessment Gait Gait Assistance Required: Contact Guard Assist Distance (Feet) 60 Assistive Devices Assistive Device Gait Belt,Straight Cane,Front Wheeled Walker Gait Deviations General Gait Pattern Antalgic,Decreased Stride Length,Decreased Feet Clearance,Wide Based Gait Factors Limiting Gait Function Factors Limiting Gait Function Decreased Activity Tolerance, Decreased Strength,Pain Comments Gait Comments Initial gait with SPC steady, patient fatigued quickly. Gait with FWW more safe and recommended to pt and for home use at this time if goes home today PT-Balance Assessment Sitting Balance and Reactions Static Sitting Balance Ability Normal Standing Balance and Reactions Static Standing Balance Ability Fair Dynamic Standing Balance Ability Fair Comments Other Balance Tests/Deviations/Treatment Patient denies any fall for a : few years M5 PT-IP Objective Assessments Start: 07/01/22 10:16 Freq: NEEDED Status: Active Protocol: Document 07/01/22 10:16 ANDREA (Rec: 07/01/22 10:29 [facility] [id number]) Orientation Orientation/Cognition Level of Alertness Alert Orientation Name,Age,Place,Situation Language Function Ability No Deficits Noted Safety Awareness Understands Safety Issues Memory Description No Deficits Noted Gross Range of Motion Upper Extremity ROM Assessment Within Functional Limits Strength Upper Extremity Strength Assessment Within Functional Limits Lower Extremity Strength Hip 4/5 right, 4-/5 left Knee 4+/5 jorge Ankle 4+/5 right, 4-/5 left Comments Strength Comments pain left hip limits strength, [place] for MMT Coordination Assessment Gross Coordination Gross Coordination WNL Sensation Assessment Sensation Gross Sensation Right LE Impaired,Left LE Impaired Muscle Tone Muscle Tone WNL Yes M6 PT-IP Treatment Start: 07/01/22 10:16 Freq: NEEDED Status: Active Protocol: Document 07/01/22 10:16 ANDREA (Rec: 07/01/22 10:29 [facility] [id number]) Physical Therapy Treatment Other Treatments Other Treatment Performed Patient and education for use of 4WW at home for safety at this time (has 4WW and cane) M7 PT-IP Assessment and Plan Start: 07/01/22 10:16 Freq: NEEDED Status: Active Protocol: Document 07/01/22 10:16 [facility] (Rec: 07/01/22 10:29 [facility] [id number]) PT Summary Assessment and Plan Potential Rehabilitation Potential Good Status of Condition at Evaluation Evolving Summary Impairments Pain,ROM,Strength,Balance, Sensation,Bed Mobility, Transfers,Gait,Activity Tolerance Assessment Summary Patient presents to PT following TIA, complication of history of Parkinson's. His was present for evaluation and able to help in the home. Additionally patient has been receiving PT 2x/wk at [facility]. He is limited his LE strength, mobility, and activity tolerance at this time but also sounds like this is baseline for him. I did patient education with him and his regarding safety with mobility including recommendation for use of 4WW in the home and community at this time if he is discharged home; they verbalized understanding. Goals Bed Mobility Goal Independent Transfer Goal Independent Gait Goal Independent Gait Distance 100 Days to Meet Goals 2 Frequency of Treatment Frequency Of Treatment Once a Day Treatment Plan Physical Therapy Treatment Plan Transfer Training,Gait Training,Therapeutic Exercise, Balance Retraining, Neuromuscular Re-ed Recommendations To Nursing Amount of Assist Needed 1 Person Assist Discharge Recommendations PT Discharge Recommendations Home,Outpatient PT Other Discharge Recommendations new referral with new diagnosis to [facility] Transportation Needs at Discharge Private Vehicle
--- NOTE | 2022-07-01 10:35 | OT.IP.EVAL ---
Current Diagnoses Cerebral infarction, unspecified (06/30/22) Past Medical History (Last Reviewed 07/01/22 @ 03:30 [facility] Hx of skin cancer, basal cell Hypothyroid Kidney disease Parkinsons Surgical History (Last Reviewed 07/01/22 @ 03:30 [facility] History of hip replacement History of tonsillectomy and adenoidectomy Hx of appendectomy Hx of cataract surgery Hx of cholecystectomy Hx of knee surgery Hx of neck surgery Occupational Therapy Inpatient Evaluation/Re-Eval M1 PT/OT-IP Prior Functional Status Start: 07/01/22 10:16 Freq: NEEDED Status: Active Protocol: Document 07/01/22 10:35 [facility] (Rec: 07/01/22 12:53 [facility] [id number]) Medical Review Prior Functional Status Medical History Reviewed Yes Diet/Fluid Consistency Regular Communication no limitations Mobility and Gait uses straight cane or 4WW Activities of Daily Living and IADL's modified independent Social History Household Members spouse Living Arrangements House Number of Floors (Floors) One Floor Number of Stairs To Enter/Railing? 1, railing Home Environment Standard Height Toilet,Tub/ Shower Home Equipment Four Wheel Walker,Straight Cane,Grab Bars Near Toilet, Grab Bars In Shower M2 OT-IP Current Condition Start: 07/01/22 12:09 Freq: Status: Active Protocol: Document 07/01/22 10:35 [facility] (Rec: 07/01/22 12:53 [facility] [id number]) Occupational Therapy Current Condition Current Condition Evaluation Date 07/01/22 Treatment Diagnosis acute CVA frontal lobe infarction Diagnosis Onset Date 06/30/22 M3 OT- IP Subjective and Pain Start: 07/01/22 12:09 Freq: Status: Active Protocol: Document 07/01/22 10:35 [facility] (Rec: 07/01/22 12:53 [facility] [id number]) OT- Subjective Occupational Therapy Visit Type Type Initial Evaluation Visit Start Time 10:35 Visit Stop Time 11:27 Total Visit Minutes 52 Occupational Therapy Visit Comments Patient Comments Pt agreed to get up. Patient/Caregiver Goals TO go home. OT Pain Assessment Pain When Pain Assessed At Rest Pain Present Pain Present Denied Pain M4 OT- IP ADL's Start: 07/01/22 12:09 Freq: Status: Active Protocol: Document 07/01/22 10:35 [facility] (Rec: 07/01/22 12:53 [facility] [id number]) OT [id number] Comments OT Self-Feeding Comments NO issues noted. OT ADL-Grooming Comments OT Grooming Comments Pt states did prior. OT ADL-Oral Care Comments Oral Care Comments Pt states did prior. OT ADL-Dressing General Eval Lower Body Dressing Ability Minimal Assistance Comments OT Dressing Comments Assist to help tie his shoes. OT ADL-Toileting Comments OT Toileting Comments Pt states just used the toilet prior. OT ADL-Bathing Comments OT Bathing Comments Pt states to shower at home. Pt states has two built in seat in his walk in shower and his is always present when her showers. Pt to also consider a tub bench for his tub/shower. M5 OT- IP IADL's Start: 07/01/22 12:09 Freq: Status: Active Protocol: Document 07/01/22 10:35 [facility] (Rec: 07/01/22 12:53 [facility] [id number]) OT-Instrumental Activities of Daily Living Home Safety Awareness Awareness of Need for Assistance at Home Good Awareness Ability to Problem Solve Emergency Able to Problem Solve Situations Medication Management Medication Management Comments Pt may need supervision due to his decreased short term memory. Money Management Money Management Caregiver Provides Assistance Meal Preparation Meal Preparation Caregiver Provides Assist Deck Steward Deck Steward Caregiver Provides Assist Driving Driving Comments Pt no longer drives, but does in case of an emergengy. Pt's states to have a neighbor assist instead at this time. M6 OT- IP Functional Cognition Start: 07/01/22 12:09 Freq: Status: Active Protocol: Document 07/01/22 10:35 [facility] (Rec: 07/01/22 12:53 [facility] [id number]) Cognitive Factors Limiting Selfcare Function Cognitive Ability Level of Alertness Alert Patient Orientation Name,Age,Birthday,Month,Date, Year,Day of Week,Place, Situation Attention Span Ability Capable of Focused Attention, Capable of Sustained Attention Ability to Follow Commands Able to Follow One Step Commands Memory Description Short Term Impaired Safety Awareness No Deficits Noted Executive Function Ability Unable to Switch Focus,Unable to Filter Distractions Cognitive Tests SLUMS Pt scored 23/30 on the SLUMS which implies mild neurocognitive disorder. Pt mainly just having difficulty with his short term memory. Pt not able to recall any of the 5 objects after time passed. Pt able to answer 3/4 questions right after time passed. Cognitive Comments Cognitive Assessment Comments Pt scored 136 seconds with one verbal cue to recall the instructions on [place] [employer] . Pt scores implies severe impairment for visual attention, executive functioning, mental flexibility, task switching, and speed of processing. Pt main deficits for cognition is his short term memory at this time. Pt's agrees that he will not be driving at this time and prior only drove in case of an emergency. OT- Vision and Hearing OT- Hearing Assessment OT- Hearing Assessment WFL OT- Vision Assessment Visual Acuity Glasses All The Time M7 OT- IP Mobility and Balance Start: 07/01/22 12:09 Freq: Status: Active Protocol: Document 07/01/22 10:35 [facility] (Rec: 07/01/22 12:53 [facility] [id number]) OT- Bed Mobility Assessment Rolling Level of Assistance Standby Assistance Supine to Sit Supine to Sit Assist Standby Assistance Sit to Supine Sit to Supine Assist Independent OT-Transfer Assessment Sit to and From Stand Sit to and from Stand Standby Assistance Transfers Transfer Ability Standby Assistance Technique Transfer Destination Bed Transfer Technique Stand Step Pivot Devices Transfer Assistive Devices Gait Belt,Front Wheeled Walker ,4 Wheeled Walker Comments Mobility Comments Able to educated pt's to mirtha/doff the gait belt on the pt to assist if needed as at times pt a little unsteady on his feet at times. Pt able to use fww and 4ww effectively and looking to keep a FWW in the car for the pt. OT- Balance Assessment Sitting Balance and Reactions Static Sitting Balance Ability Normal Dynamic Sitting Balance Ability Good Standing Balance and Reactions Static Standing Balance Ability Fair Dynamic Standing Balance Ability Fair M8 OT- IP Objective Assessments Start: 07/01/22 12:09 Freq: Status: Active Protocol: Document 07/01/22 10:35 [facility] (Rec: 07/01/22 12:53 [facility] [id number]) OT Gross Range of Motion Upper Extremity Range of Motion Assessment Within Functional Limits OT Strength Comments Strength Comments RUE 4/5 and LUE 4+/5 throughout. OT- Coordination Assessment Upper Extremity Finger to Nose Test Left UE Impaired Finger Tapping Test Within Functional Limits Comments Coordination Comments right hand slightly off for finger to nose initially OT-Muscle Tone Assessment Muscle Tone WNL Yes M9 OT- IP Assessment and Plan Start: 11/15/22 12:09 Freq: Status: Active Protocol: Document 07/01/22 10:35 [facility] (Rec: 07/01/22 12:53 [facility] [id number]) OT Summary Assessment and Plan Potential Rehabilitation Potential Good Analytic Complexity at Evaluation Moderate Summary OT Impairments Balance,Functional Cognition, Functional Mobility,Dressing, Toileting,Bathing,Toilet Transfers,Shower Transfers Progress Towards Goals Progressing Toward Goals,Slow Progress due to Cognition Assessment Summary Pt here due to acute frontal lobe infarction and possible normal pressure hydrocephalus. Pt's main barriers are decreased short term memory and decreased for dynamic balance at this time and has been going to out PT in [place] for his balance needs. Pt has a very supportive . Pt scored 23/30 on the SLUMS and mainly having difficulty with short term memory. Goals Dressing Goal Independent Toileting Goal Independent Bathing Goal Standby Assistance Toilet Transfer Goal Independent Shower Transfer Goal Independent Days to Meet Goals 5 Frequency of Treatment Frequency Of Treatment Once a Day Treatment Plan OT Treatment Plan ADL Training,Functional Cognition Training,Functional Mobility,Patient/Family Education,Discharge Planning Other Treatment Recommendations and Next Shower if still here Treatment Focus Discharge Recommendations OT Discharge Recommendations Home with Assistance Home Equipment Needs FWW, shower chair/tub bench, hand held shower spray Transportation Needs at Discharge Private Vehicle
[2022-07-01 12:43] VITALS: BP 152/87; PULSE 83; RESP 18; TEMP 36.2; O2SAT 97
--- NOTE | 2022-07-01 15:32 | SLP.IPNOTE ---
Order received. Spoke to patient about his swallowing and his speech.. Pt reports no difficulties with either. Pt declined formal evaluations as he felt he was back to baseline.
--- NOTE | 2022-07-01 15:37 | CM.DANOTE ---
Patient is an 87 yo male who was admitted on 06/30/22 for Numbness/Stroke. Pt has MCR and BX FED for insurance and his PCP is Dr. Santana Mckee. EMR was reviewed. Per MD, pt with hx of Parkinsons and admitted for Stroke and to work with PT/OT/ST and may be stable for d/c home later today. Per PT/OT, recommending safe d/c home with spouse assist and outpt PT. Pt already established at [facility] outpt PT and has been going twice a week and has walker at home for use. Per OT, pt scored 23/30 on SLUMS for short term memory loss. SW met bedside with pt and spouse and explained role and they confirm they live in [place] and spouse is about 20 years younger than pt and able to assist as needed. Spouse mostly drives and pt fairly independent at baseline and has been working on strengthening with outpt PT and denies hx of HH or SNF and pt and spouse feel comfortable with d/c to home. Pt hopeful to discharge home this afternoon and do not anticipate any needs. Plan: SW to follow for plan of likely d/c home tonight via spouse POV and outpt PT. KAMLA Morgan Discharge Planning/Care Management CM Discharge Assessment Start: 07/01/22 15:35 Freq: Status: Active Protocol: Document 07/01/22 15:36 [facility] (Rec: 07/01/22 15:37 [id number]) Discharge Planning Assessment Assigned Development Architect KAMLA Garza DPOA/Assigned Designee Name spouse Advance Directives? No Advance Directives on File No History Provided By Patient,Significant Other, Medical Record Has Patient been admitted in last 30 No days? Prior Living Arrangements House Household Members spouse Type of transporation used prior to Relies on Others admit Independent with ADL's Yes Is patient alert and oriented? Yes: some short term memory, 30 SLUMS Needs Assistance With Home Chores / Shopping Caregiver for Another No Community Services used prior to Physical Therapy admission: Comment Established at [facility] outpt PT DME Already Rented / Owned Bath Bench,FWW / Walker Patient/Family Preference OP PT Therapy Barriers to Discharge No Discharge Plan Home Community Services Physical Therapy Transportation Arrangement Spouse bedside and plans to provide transport at d/c Referrals Initiated None needed Whiteboard Updated in Patient Room with Yes name and ext. # of Development Architect Review Status In Process Please Provide Date Initial DC 07/01/22 Assessment Was Performed Next Review Type Continued Stay Review
--- NOTE | 2022-07-01 17:14 | PC.NURSE ---
Discharge: Reviewed d/c plan with patient and spouse. He has not had his echo due to triage in ED having higher care need. has already called his dry room attendant and his echo is already ordered as out pt. has also called patients neurologist and made follow up with him. A copy of all of pt's films has been given to spouse and patient. Reviewed discharge packet. Rx has been esent and pt spouse shown on form it is verified. Apparently the pharmacy can be slow about filling orders. He has had med today and wont need another dose until tomorrow. Questions answered. Pt had no concerns about d/c. Pt d/c to home via auto w/spouse.
== END 2022-07-01 17:15 | disposition home or self-care (01) ==
LOC: ED 18:20 → AC 19:00
PROVIDERS: Nurse Practitioner Family; Admitting Provider Internal Medicine; Emergency Provider Emergency Medicine; Family Provider Family Medicine; PCP Family Medicine; Referring Provider Emergency Medicine; Visit Provider Internal Medicine
DX: I63.89 Other cerebral infarction (principal); R20.0 Anesthesia of skin; G20 Parkinson's disease; Z20.822 Contact with and (suspected) exposure to COVID-19; E03.9 Hypothyroidism, unspecified; K21.9 Gastro-esophageal reflux disease without esophagitis; R29.702 NIHSS score 2; R33.9 Retention of urine, unspecified; N18.32 Chronic kidney disease, stage 3b; E78.5 Hyperlipidemia, unspecified
CPT/HCPCS: 36415; 70450; 70496; 70498; 70551; 80048; 80053; 80061; 80305; 81003; 81015; 82550; 83036; 83735; 83880; 84443; 84484; 85025; 85610; 85730; 87086; 87635; 93005; 93010; 96372; 97162; 97166; 97530; 99285; C9803; G0378; J1650; Q9967

== ENCOUNTER → 2022-07-17 14:31 | Outpatient (CLI) | payer MEDICARE, BC, OTHER, SELFPAY ==
[2022-06-30 18:37] VITALS: BMI 30.5
--- NOTE | 2022-07-17 | DI.ECHO.S_ITS ---
[facility] [facility]---------+ [facility] +---------+ : : [address] : : : : [id number] : : : : Phone: [phone]---------+ Echocardiogram Report + + :Name: ZAHEER ANDERSON Study Date: 07/17/2022 Height: 69 in : :[facility] ReadingLocation: Weight: 210 lb : : Gender: Male BSA: 2.1 m2 : :: 1935 Age: 87 yrs BP: 143/87 mmHg: :Reason For Study: Hypertension : :Ordering Physician: KIRK, : :MARGOT Caicedo Performed By: Vj Saleh : :Referring: MARGOT BRADLEY : + + Interpretation Summary The study quality was technically difficult. A contrast injection of Definity was performed to improve assessment of LV function. The ejection fraction is estimated to be 60-65%. The aortic valve is not well visualized. There is mild aortic valve sclerosis. Procedure: A two-dimensional transthoracic echocardiogram with color flow and Doppler was performed. The study quality was technically difficult. There is no prior echocardiogram noted for this patient. A contrast injection of Definity was performed to improve assessment of LV function. Left Ventricle: The left ventricle is normal in size and wall thickness. Left ventricular systolic function is normal. The ejection fraction is estimated to be 60-65%. There are no focal wall motion abnormalities. Diastolic function could not be accurately assessed due to unobtainable data. Right Ventricle: The right ventricle is normal in size and function. Atria: Both atria are normal in size. The interatrial septum grossly appears intact with no obvious evidence for an atrial septal defect. Mitral Valve: There is mild mitral annular calcification. There is no mitral regurgitation. Aortic Valve: The aortic valve is not well visualized. There is mild aortic valve sclerosis. No aortic regurgitation is present. Tricuspid Valve: The tricuspid valve is normal in structure and function. No tricuspid regurgitation. Pulmonary artery pressures cannot be estimated because of the lack of a measurable TR jet velocity. Pulmonic Valve: The pulmonic valve is normal in structure and function. There is a trace or physiologic amount of pulmonic regurgitation. Great Vessels: The aortic root is normal size. The dimensions of the ascending aorta are normal. The IVC is of normal diameter and collapses greater than 50% with a sniff. This suggests a low right atrial pressure of 3 mm Hg. Pericardium/ Pleura There is no pericardial effusion. There is no pleural effusion. MMode/2D Measurements & Calculations LVIDd: 4.4 cm LVOT diam: 2.1 cm LVIDs: 2.9 cm Ao root diam: 3.4 cm FS: 34.1 % asc Aorta Diam: 3.3 cm IVSd: 1.1 cm LVPWd: 1.1 cm LV leija. diameter/BSA (cm/m^2): 2.1 LV sys. diameter/BSA (cm/m^2): 1.4 LA dimension: 4.2 cm RA long axis: 5.0 cm LA A2 area: 18.3 cm2 LA A4 area: 15.7 cm2 LA length (vol): 5.1 cm LA vol: 47.4 ml LA vol index: 22.5 ml/m2 Doppler Measurements & Calculations Ao V2 max: 93.3 cm/sec LVOT Max Clark: 90.7 cm/sec Ao V2 mean: 63.6 cm/sec LV V1 max P.3 mmHg Ao max P.0 mmHg LV V1 VTI: 18.9 cm Ao mean P.0 mmHg KRYSTEN(I,D): 3.6 cm2 Ao V2 VTI: 18.1 cm KRYSTEN(V,D): 3.4 cm2 sev ratio: 1.0 KRYSTEN indexed to BSA (cm^2/m^2): 1.7 MV E max clark: 58.7 cm/sec SV(LVOT): 65.5 ml MV A max clark: 106.0 cm/sec MV E/A: 0.55 Med Peak E' Clark: 4.4 cm/sec E/E' med: 13.5 Lat Peak E' Clark: 3.9 cm/sec E/E' lat: 15.2 E/e' average: 14.3 MV dec time: 0.86 sec AV VR_phl: 0.97 MV P1/2t-pr_phl: 251.0 msec KRYSTEN(VTI)/BSA_phl: 1.7 Reading Physician:01:27 PM
== END ==
PROVIDERS: Family Provider Family Medicine; PCP Family Medicine; Referring Provider Family Medicine; Visit Provider Family Medicine
DX: G45.9 Transient cerebral ischemic attack, unspecified (principal); I08.0 Rheumatic disorders of both mitral and aortic valves; I10 Essential (primary) hypertension
CPT/HCPCS: 93306; C8929; Q9957

== ENCOUNTER 2022-12-30 12:51 | Emergency (ER) | payer MEDICARE, BC, OTHER, SELFPAY ==
[2022-06-30 18:37] VITALS: BMI 30.5
[2022-12-30] VITALS (7 sets, daily range): BP systolic 167–174; BP diastolic 99–103; PULSE 78–84; RESP 16–18; TEMP 36.3; O2SAT 95–96; BMI 32.1
--- NOTE | 2022-12-30 13:40 | ED.GENADULT ---
HPI - General Adult General Chief complaint: Nausea/Vomiting/Diarrhea Stated complaint: can't keep anything down T-1/HX kidney disease Time Seen by Provider: 12/30/22 13:29 Source: patient and family () Mode of arrival: Ambulatory Limitations: no limitations History of Present Illness HPI narrative: Patient is an 87-year-old male. History of Parkinson's disease. Also has a history of kidney disease. Last night started to have episodes of nausea and vomiting. No diarrhea. He was able to take his medicines this morning. No abdominal pain. No fevers. They do not have any nausea medication at home. She denies any urinary symptoms. Related Data Home Medications Medication Instructions Recorded Confirmed acyclovir 200 mg capsule 400 mg PO BID 03/29/19 06/30/22 atorvastatin 10 mg tablet 10 mg PO BEDTIME 03/29/19 06/30/22 coenzyme Q10 100 mg capsule 200 mg PO DAILY 03/29/19 06/30/22 (CoQ-10) hydralazine 10 mg tablet 10 mg PO USEASDIRECTD PRN 03/29/19 06/30/22 Hypertension latanoprost 0.005 % eye drops 1 drp EYE-BOTH BEDTIME 03/29/19 06/30/22 levothyroxine 100 mcg capsule 100 mcg PO DAILY 03/29/19 06/30/22 prednisone 20 mg tablet 20 mg PO DAILY PRN Gout 03/29/19 06/30/22 cholecalciferol (vitamin D3) 50 50 mcg PO DAILY 06/30/22 06/30/22 mcg (2,000 unit) capsule (Vitamin D3) cyanocobalamin (vitamin B-12) 1,000 mcg PO 3XW 06/30/22 06/30/22 1,000 mcg sublingual tablet ipratropium bromide 42 mcg (0.06 2 spray intranasal TID PRN Allergy 06/30/22 06/30/22 %) nasal spray Symptoms magnesium hydroxide 400 mg/5 mL 5 ml PO Q OTHER DAY 06/30/22 06/30/22 oral suspension (Milk of Magnesia) mirabegron 25 mg tablet,extended 25 mg PO BEDTIME 06/30/22 06/30/22 release 24 hr (Myrbetriq) Previous Rx's Medication Instructions Recorded clopidogrel 75 mg tablet 75 mg PO DAILY #90 tabs 11/15/22 pantoprazole 40 mg tablet,delayed 40 mg PO QAM #90 tabs 07/02/22 release (Protonix) ondansetron 4 mg disintegrating 4 mg PO Q6H PRN nausea and 12/30/22 tablet vomiting #10 tabs Allergies Allergy/AdvReac Type Severity Reaction Status Date / Time adhesive Allergy Mild BILSTERS Unverified 06/30/22 12:12 FROM TAPE Sulfa (Sulfonamide Allergy Unknown Unverified 06/30/22 12:12 Antibiotics) Review of Systems Constitutional Constitutional: Reports system reviewed and no additional complaints, except as documented Cardiovascular Cardiovascular: Reports system reviewed and no additional complaints, except as documented Respiratory Respiratory: Reports system reviewed and no additional complaints, except as documented Gastrointestinal Gastrointestinal: Reports system reviewed and no additional complaints, except as documented Genitourinary Genitourinary: Reports system reviewed and no additional complaints, except as documented Integumentary/Breasts Skin/Breast: Reports system reviewed and no additional complaints, except as documented Neurologic Neurologic: Reports system reviewed and no additional complaints, except as documented Hematologic/Lymphatic On Anticoagulants: No Patient History Medical History Hx of skin cancer, basal cell Hypothyroid Kidney disease Parkinsons Surgical History History of hip replacement History of tonsillectomy and adenoidectomy Hx of appendectomy Hx of cataract surgery Hx of cholecystectomy Hx of knee surgery Hx of neck surgery Family History (Updated 07/01/22 @ 03:31 by FRANCISCO Beltrán) Father Hypertension Heart disease Cancer Mother due to natural causes Social History marital status: household members: spouse occupational status: previously employed Smoking Status: Never smoker alcohol intake: current substance use type: does not use Smoking Status: Never smoker alcohol intake frequency: 0-2 drinks per day Substance Use Type: does not use Exam Initial Vital Signs Initial Vital Signs: Vital Signs Pulse Rate 81 12/30/22 13:07 Blood Pressure 174/102 H 12/30/22 13:07 Pulse Oximetry 95 12/30/22 13:07 Const General: cooperative, comfortable and No ill appearing HENMT Head: normal to inspection and normocephalic Resp Effort & Inspection: normal respiratory effort Auscultation: clear to auscultation bilaterally Cardio Rate: regular rate Rhythm: regular rhythm GI Inspection: normal to inspection Palpation: soft, No firm and No tender Skin General: no rashes or lesions noted Neuro General: patient alert, patient awake and moves all extremities Extrem General: capillary refill normal Course Orders Ordered: ED Orders 12/30/22 13:25 Urine Microscopic Stat 12/30/22 13:26 Complete Blood Count AUTO DIFF Stat Comprehensive Metabolic Panel Stat Lipase Stat Prothrombin Time INR Stat Discontinued Medications Sodium Chloride (Normal Saline 0.9%) 1,000 mls @ 1,000 mls/hr IV BOLUS ONE Stop: 12/30/22 14:39 Last Infusion: 12/30/22 14:44 Dose: 0 mls/hr Documented By: Admin: 12/30/22 13:53 Dose: 1,000 mls/hr Documented By: ZIGGY Ondansetron HCl (Ondansetron 4 Mg/2 Ml Inj) 4 mg IV NOW PRN PRN Reason: Nausea And Vomiting Vital Signs Vital signs: Vital Signs - 8 hr 12/30/22 13:10 12/30/22 13:07 12/30/22 13:07 Temperature 97.4 F L Pulse Rate 78 81 Respiratory Rate 16 Blood Pressure 172/102 H 174/102 H Pulse Oximetry 95 95 Oxygen Delivery Method Room Air 12/30/22 13:30 12/30/22 14:13 12/30/22 14:30 Temperature Pulse Rate 81 79 84 Respiratory Rate Blood Pressure Pulse Oximetry 95 95 96 Oxygen Delivery Method 12/30/22 14:43 12/30/22 14:43 12/30/22 15:01 Temperature Pulse Rate 84 82 Respiratory Rate 18 Blood Pressure 167/103 H 167/99 H Pulse Oximetry 95 95 Oxygen Delivery Method Room Air Medical Decision Making Lab Data Lab results reviewed: Yes I reviewed the patient's lab results. Labs: Lab Results 12/30/22 12/30/22 Range/Units 13:25 13:26 PT 10.8 (10.1-12.7) SECONDS INR 0.9 (0.9-1.3) Urine RBC 0-1/hpf (0-5/HPF) Urine WBC 0-1/hpf (0-5/HPF) Ur Squamous Epith Cells 0-1 /hpf (0-5/HPF) Urine Bacteria None seen (None) Ur Culture Indicated? Cult not indicated Urine Dip Bedside Urine Glucose Negative Bedside Urine Bilirubin - Negative Bedside Urine Ketone - Negative Urine Specific [place] 1.005 Bedside Urine Occult Blood - Negative Bedside Urine pH 7.0 Bedside Urine Protein - Negative Bedside Urine Urobilinogen - Negative Bedside Urine Nitrite - Negative Bedside Urine Leukocytes +/- 15 Esterase Point of care testing: Urine Dip Bedside Urine Glucose Negative Bedside Urine Bilirubin - Negative Bedside Urine Ketone - Negative Urine Specific [place] 1.005 Bedside Urine Occult Blood - Negative Bedside Urine pH 7.0 Bedside Urine Protein - Negative Bedside Urine Urobilinogen - Negative Bedside Urine Nitrite - Negative Bedside Urine Leukocytes +/- 15 Esterase MDM Narrative Medical decision making narrative: After fluids patient states he felt much better. He was able to tolerate oral intake. Has a benign exam. I do feel that we can hold on any radiologic testing for now as I have low suspicion for an acute intra-abdominal surgical issue as he does have a soft abdomen. We will hold on any lab testing for now. Will send home with a prescription for nausea medication. He was given return precautions. Both he and his expressed understanding and agreement. Discharge Plan Departure Patient Disposition: Home Clinical Impression: Nausea and vomiting Instructions: Nausea and Vomiting-Adult Activity Restrictions/Additional Instructions: I recommend that you continue to take all of your medications as directed. Be sure that your increasing your fluid intake by drinking smaller amounts more frequently. Return to the emergency department for new or worsening symptoms. Prescriptions: New ondansetron 4 mg tablet,disintegrating 4 mg PO Q6H PRN (Reason: nausea and vomiting) Qty: 10 0RF No Action levothyroxine 100 mcg capsule 100 mcg PO DAILY acyclovir 200 mg capsule 400 mg PO BID Rx Instructions: afternoon and bedtime atorvastatin 10 mg tablet 10 mg PO BEDTIME coenzyme Q10 [CoQ-10] 100 mg capsule 200 mg PO DAILY latanoprost 0.005 % drops 1 drp EYE-BOTH BEDTIME prednisone 20 mg tablet 20 mg PO DAILY PRN (Reason: Gout) hydralazine 10 mg tablet 10 mg PO USEASDIRECTD PRN (Reason: Hypertension) Rx Instructions: take as needed for systolic BP> 160. take 1 every 30 minutes until blood pressure is lowered magnesium hydroxide [Milk of Magnesia] 400 mg/5 mL Suspension 5 ml PO Q OTHER DAY Rx Instructions: at bedtime cyanocobalamin (vitamin B-12) 1,000 mcg Tablet, Sublingual 1,000 mcg PO 3XW Rx Instructions: thursday, thursday, thursday ipratropium bromide 42 mcg (0.06 %) spray,non-aerosol 2 spray INTRANASAL TID PRN (Reason: Allergy Symptoms) Patient Comments: USE 2 SPRAYS IN EACH NOSTRIL 3 TIMES DAILY NEEDED FOR RHINORRHEA cholecalciferol (vitamin D3) [Vitamin D3] 50 mcg (2,000 unit) Capsule 50 mcg PO DAILY Rx Instructions: mid day Myrbetriq 25 mg tablet extended release 24 hr 25 mg PO BEDTIME Patient Comments: take 1 tablet by mouth once daily clopidogrel 75 mg Tablet 75 mg PO DAILY Qty: 90 0RF pantoprazole [Protonix] 40 mg tablet,delayed release (DR/EC) 40 mg PO QAM Qty: 90 0RF Referrals: Santana Mckee MD [Primary Care Provider] - Stand Alone Forms: Patient Portal/API
[2022-12-30] MEDS: SODIUM CHLORIDE 0.9% 1,000 ML 1000 ML IV (13:53)
[2022-12-30 13:55] LABS: INR 0.9 (0.9-1.3); Prothrombin Time 10.8 SECONDS (10.1-12.7)
[2022-12-30 14:18] LABS: Bacteria Urine None Seen; Culture Indicated Urine Cult Not Indicated; RBC Urine 0-1/HPF (0-5/HPF); Squamous Epithelial Cell Urine 0-1 /HPF (0-5/HPF); WBC Urine 0-1/HPF (0-5/HPF)
== END 2022-12-30 15:02 | disposition home or self-care (01) ==
PROVIDERS: Emergency Provider Emergency Medicine; Family Provider Family Medicine; PCP Family Medicine
DX: R11.2 Nausea with vomiting, unspecified (principal)
CPT/HCPCS: 36415; 81003; 81015; 85610; 96360; 99284

== ENCOUNTER 2023-02-12 19:59 | Emergency (ER) | payer MEDICARE, BC, OTHER, SELFPAY ==
[2022-06-30 18:37] VITALS: BMI 30.5
[2023-02-12] VITALS (10 sets, daily range): BP systolic 127–168; BP diastolic 58–81; PULSE 62–78; RESP 16–27; TEMP 37.3; O2SAT 91–97; BMI 32.5
--- NOTE | 2023-02-12 20:21 | ED_ITS ---
HPI - Abdominal Pain General Chief Complaint: Abdominal Pain Stated Complaint: lower abd pain, shaking Time Seen by Provider: 02/12/23 20:02 Source: patient and family Mode of arrival: Ambulatory History of Present Illness HPI narrative: 87-year-old male nonsmoker with history of prior stroke, hypothyroid, hyperlipidemia presents with the chief complaint of left lower quadrant pain gradually worsening over the course of the day. He states he has a deep achy pain that seems to be worse with motion and improves with rest. Denies fever or chills. He denies nausea, vomiting or constipation. He has no diarrhea. He denies any change in his urinary habits such as frequency, urgency or hematuria. He denies any chest pain or shortness of breath. He is not dizzy nor weak or lightheaded. Related Data Home Medications Medication Instructions Recorded Confirmed acyclovir 200 mg capsule 400 mg PO BID 03/29/19 02/12/23 atorvastatin 10 mg tablet 10 mg PO BEDTIME 03/29/19 02/12/23 coenzyme Q10 100 mg capsule 200 mg PO DAILY 03/29/19 02/12/23 (CoQ-10) hydralazine 10 mg tablet 10 mg PO USEASDIRECTD PRN 03/29/19 02/12/23 Hypertension latanoprost 0.005 % eye drops 1 drp EYE-BOTH BEDTIME 03/29/19 02/12/23 levothyroxine 100 mcg capsule 100 mcg PO DAILY 03/29/19 02/12/23 prednisone 20 mg tablet 20 mg PO DAILY PRN Gout 03/29/19 02/12/23 cholecalciferol (vitamin D3) 50 50 mcg PO DAILY 06/30/22 02/12/23 mcg (2,000 unit) capsule (Vitamin D3) cyanocobalamin (vitamin B-12) 1,000 mcg PO 3XW 06/30/22 02/12/23 1,000 mcg sublingual tablet ipratropium bromide 42 mcg (0.06 2 spray intranasal TID PRN Allergy 06/30/22 02/12/23 %) nasal spray Symptoms magnesium hydroxide 400 mg/5 mL 5 ml PO Q OTHER DAY 06/30/22 02/12/23 oral suspension (Milk of Magnesia) mirabegron 25 mg tablet,extended 25 mg PO BEDTIME 06/30/22 02/12/23 release 24 hr (Myrbetriq) aspirin 81 mg capsule 81 mg PO DAILY 02/12/23 02/12/23 gabapentin 100 mg capsule 100 mg PO BID 02/12/23 02/12/23 midodrine 5 mg tablet 5 mg PO DAILY PRN Hypotension 02/12/23 02/12/23 Previous Rx's Medication Instructions Recorded pantoprazole 40 mg tablet,delayed 40 mg PO QAM #90 tabs 07/02/22 release (Protonix) ondansetron 4 mg disintegrating 4 mg PO Q6H PRN nausea and 12/30/22 tablet vomiting #10 tabs apixaban 2.5 mg tablet (Eliquis) 2.5 mg PO BID #60 tabs 02/12/23 Allergies Allergy/AdvReac Type Severity Reaction Status Date / Time adhesive Allergy Mild BILSTERS Verified 02/12/23 20:06 FROM TAPE Sulfa (Sulfonamide Allergy Unknown Verified 02/12/23 20:06 Antibiotics) Review of Systems Review of Systems Narrative: GENERAL: Denies chills, fatigue, malaise, fever, sweats. HEENT: Denies sinus pain, ear pain, sore throat, difficulty swallowing, dizziness. RESPIRATORY: Denies dyspnea, cough, wheezing, hemoptysis, sputum. CARDIOVASCULAR: Denies chest pain, palpitations, orthopnea, edema, GASTROINTESTINAL: See HPI : Denies dysuria, frequency, incontinence, hematuria, urinary retention. MUSCULOSKELETAL: denies weakness, joint pain, or bony pain SKIN: Denies rash, skin lesions, or other NEUROLOGIC: Denies weakness, headache, numbness, change in speech, confusion, seizures, incoordination. PSYCHIATRIC: No concerning psychosocial issues. 12 point review of systems is negative except for those stated above Patient History Medical History Hx of skin cancer, basal cell Hypothyroid Kidney disease Parkinsons Surgical History History of hip replacement History of tonsillectomy and adenoidectomy Hx of appendectomy Hx of cataract surgery Hx of cholecystectomy Hx of knee surgery Hx of neck surgery Family History Father Hypertension Heart disease Cancer Mother due to natural causes Social History (Reviewed 02/12/23 @ 22:19 by SATINDER Ricks marital status: household members: spouse occupational status: previously employed Smoking Status: Never smoker alcohol intake: current substance use type: does not use Smoking Status: Never smoker alcohol intake frequency: 0-2 drinks per day Substance Use Type: does not use Exam Narrative Exam Narrative: GENERAL: [87] year old patient appears stated age. Well-developed patient, in mild distress. HEAD: Atraumatic. Normocephalic. EYES: Pupils equal round and reactive. Extraocular motions intact. No scleral icterus. No injection or drainage. ENT: Nose without bleeding, purulent drainage. Throat without erythema, tonsillar hypertrophy or exudate. Airway patent. NECK: Trachea midline. Non tender CARDIOVASCULAR: Regular rate and rhythm without murmurs, gallops, or rubs. RESPIRATORY: Clear to auscultation. Breath sounds equal bilaterally. No wheezes, rales, or rhonchi. GASTROINTESTINAL: Abdomen soft, non-tender, nondistended. EXTREMITIES: No edema or joint tenderness. BACK: Nontender without deformity or crepitance. No flank tenderness. NEURO: AOx3. SKIN: No rash or erythema of visible areas Initial Vital Signs Initial Vital Signs: Vital Signs Temperature 99.2 F 02/12/23 20:03 Pulse Rate 70 02/12/23 20:03 Respiratory Rate 18 02/12/23 20:03 Blood Pressure 148/68 H 02/12/23 20:03 Pulse Oximetry 94 02/12/23 20:03 Oxygen Delivery Method Room Air 02/12/23 20:03 Course Orders Ordered: ED Orders 02/12/23 22:03 Urine Culture Stat Urine Microscopic Stat Discontinued Medications Sodium Chloride (Normal Saline 0.9%) 500 mls @ 1,000 mls/hr IV BOLUS ONE Stop: 02/12/23 21:30 Last Infusion: 02/12/23 22:14 Dose: 0 mls/hr Documented By: Admin: 02/12/23 21:17 Dose: 1,000 mls/hr Documented By: RENEE Reevaluation(s) Reevaluation #1: patient pain resolved by the time he returns from CT Vital Signs Vital signs: Vital Signs - 8 hr 02/12/23 22:00 02/12/23 22:00 02/12/23 22:12 Pulse Rate 75 Pulse Rate [Orthostatic Lying] 77 Pulse Rate [Orthostatic Sitting] 74 Pulse Rate [Orthostatic Standing] 62 Respiratory Rate 27 H Blood Pressure 151/73 H Blood Pressure [Orthostatic Lying] 132/62 Blood Pressure [Orthostatic Sitting] 168/81 H Blood Pressure [Orthostatic Standing] 143/58 H Pulse Oximetry 95 Oxygen Delivery Method Room Air 02/12/23 22:30 02/12/23 22:30 Pulse Rate 69 Pulse Rate [Orthostatic Lying] Pulse Rate [Orthostatic Sitting] Pulse Rate [Orthostatic Standing] Respiratory Rate 26 H Blood Pressure 127/67 Blood Pressure [Orthostatic Lying] Blood Pressure [Orthostatic Sitting] Blood Pressure [Orthostatic Standing] Pulse Oximetry 95 Oxygen Delivery Method Room Air MDM - Abdominal Pain Lab Data 02/12/23 20:35 02/12/23 20:35 Labs: Lab Results 02/12/23 02/12/23 02/12/23 Range/Units 20:35 20:35 20:35 WBC 12.4 H (4.5-11.0) X10^3/uL RBC 4.69 (4.5-5.9) X10^6/uL Hgb 15.3 (13.5-17.5) g/dL Hct 44.9 (41-53) % MCV 95.7 (80-100) fL MCH 32.5 (26-34) PG MCHC 34.0 (30-36) % RDW 13.5 (11.6-14.8) % Plt Count 216 (150-400) X10^3/uL Neut % (Auto) 79.9 H (50-75) % Lymph % (Auto) 10.9 L (25-40) % [place] % (Auto) 7.4 (3-14) % Eos % (Auto) 1.1 L (2-4) % Baso % (Auto) 0.7 (0-2) % Neut # (Auto) 9900 H (4773-1262) /uL Lymph # (Auto) 1300 (2310-9843) /uL [place] # (Auto) 900 (0-900) /uL Eos # (Auto) 100 (0-450) /uL Baso # (Auto) 100 (0-100) /uL Sodium 139 (137-145) mmol/L Potassium 4.2 (3.4-5.1) mmol/L Chloride 101 (98-107) mmol/L Carbon Dioxide 32 (22-32) mmol/L BUN 32 H (9-20) mg/dL Creatinine 2.04 H (0.66-1.25) mg/dL Estimated GFR 31 L (>60) mL/min BUN/Creatinine Ratio 15.7 (6-22) Glucose 96 (80-110) mg/dL Lactate 1.0 (0.7-2.1) mmol/L Calcium 9.5 (8.4-10.2) mg/dL Total Bilirubin 1.1 (0.2-1.3) mg/dL AST 19 (17-59) IU/L ALT 19 (<50) IU/L Alkaline Phosphatase 74 (38-126) U/L Total Protein 7.1 (6.3-8.2) g/dL Albumin 4.0 (3.5-5.0) g/dL Globulin 3.1 (1.7-4.1) g/dL Albumin/Globulin Ratio 1.3 (1.0-2.8) Lipase 59 (23-300) U/L Urine RBC (0-5/HPF) Urine WBC (0-5/HPF) Ur Squamous Epith Cells (0-5/HPF) Urine Bacteria (None) Ur Culture Indicated? 02/12/23 Range/Units 22:03 WBC (4.5-11.0) X10^3/uL RBC (4.5-5.9) X10^6/uL Hgb (13.5-17.5) g/dL Hct (41-53) % MCV (80-100) fL MCH (26-34) PG MCHC (30-36) % RDW (11.6-14.8) % Plt Count (150-400) X10^3/uL Neut % (Auto) (50-75) % Lymph % (Auto) (25-40) % [place] % (Auto) (3-14) % Eos % (Auto) (2-4) % Baso % (Auto) (0-2) % Neut # (Auto) (0804-1499) /uL Lymph # (Auto) (6377-7795) /uL [place] # (Auto) (0-900) /uL Eos # (Auto) (0-450) /uL Baso # (Auto) (0-100) /uL Sodium (137-145) mmol/L Potassium (3.4-5.1) mmol/L Chloride (98-107) mmol/L Carbon Dioxide (22-32) mmol/L BUN (9-20) mg/dL Creatinine (0.66-1.25) mg/dL Estimated GFR (>60) mL/min BUN/Creatinine Ratio (6-22) Glucose (80-110) mg/dL Lactate (0.7-2.1) mmol/L Calcium (8.4-10.2) mg/dL Total Bilirubin (0.2-1.3) mg/dL AST (17-59) IU/L ALT (<50) IU/L Alkaline Phosphatase (38-126) U/L Total Protein (6.3-8.2) g/dL Albumin (3.5-5.0) g/dL Globulin (1.7-4.1) g/dL Albumin/Globulin Ratio (1.0-2.8) Lipase (23-300) U/L Urine RBC None seen (0-5/HPF) Urine WBC 1-5/hpf (0-5/HPF) Ur Squamous Epith Cells 1-5 /hpf (0-5/HPF) Urine Bacteria None seen (None) Ur Culture Indicated? Specimen cultured Point of care testing: Urine Dip Bedside Urine Glucose Negative Bedside Urine Bilirubin - Negative Bedside Urine Ketone - Negative Urine Specific [place] 1.010 Bedside Urine Occult Blood - Negative Bedside Urine pH 6.0 Bedside Urine Protein - Negative Bedside Urine Urobilinogen - Negative Bedside Urine Nitrite - Negative Bedside Urine Leukocytes +/- 15 Esterase ECG Data Interpretation: Atrial flutter 4:1, ventricular rate 67 MDM Narrative Medical decision making narrative: CC: 87-year-old male with left lower quadrant pain Complicating co-morbidities: Age, prior stroke, chronic kidney disease Data collected from: Patient Medical records reviewed: Prior notes reviewed in our EMR Differential considered, but not limited to: Kidney stone versus diverticulitis versus bowel obstruction versus other Exam documented above, pertinent findings include: Heart rate regular, lungs clear, no labored breathing, abdomen soft and nontender Lab Test results independently reviewed as above. Pertinent findings: White blood cells 12.4, no signs of anemia, creatinine 2.04, slight decreased from baseline, electrolytes normal, lactate 1.0, urine without evidence of infection Independently reviewed EKG as above Imaging studies independently reviewed: CT of abdomen and pelvis demonstrates a small loop of bowel in the left hemiabdomen with some thickening and inflammatory change. Scores Used: CHADSVasc Consultations: Call to [facility] (Dr. Shields). We have discussed case and he agrees with initiation of Eliquis and follow up Discussion: Patient presented with left lower quadrant pain that thankfully resolved without any intervention. Imaging does demonstrate some thickening of a solitary loop of bowel but it is unclear if this is inflammatory versus infection. Patient has no fever, no chills, pain is controlled and he is tolerating orals. As an incidental finding he is noted to have atrial flutter which is apparently a new discovery as it is not noted on any prior notes or EKGs. He had an echo just a few months ago when he was admitted for a stroke. I consulted with his cardiology group and we agree that starting Eliquis is appropriate, he was given renal dosing. Extensive return precautions discussed and encouraged to follow-up with his cardiology office. Disposition: see below, along with detailed discharge instructions that have been reviewed with patient as well as indications for ED re-evaluation and additional outpatient follow up Discharge Plan Departure Patient Disposition: Home Clinical Impression: Atrial flutter, Abdominal pain, acute, left lower quadrant Instructions: DI for Atrial Flutter, DI for Abdominal Pain-Adult Activity Restrictions/Additional Instructions: *You have been diagnosed with [ atrial flutter and abdominal pain that has resolved] *What to do: *Please continue to take your regular medications as directed. [x ] New medication prescriptions sent to your pharmacy: [ [facility] [place]] [ ] New medication written as a paper prescription [ ] No new medications given *Please follow up with your primary care provider in 2-3 days, call for an appointment. Let them know you were seen in the Emergency Department and that we ask that you be seen in follow up. We will electronically transmit a record of today's note if your PCP is in our system * also, as we discussed please contact your loss control representative office tomorrow, let them know that you were seen in the emergency department and we would like you seen in follow-up. I know you have an appointment in March but you should probably be seen sooner given this newly discovered cardiac issue. I will try to electronically transmitted a copy of today's note to their office *Return to Emergency Department if you should have any new, worsening or concerning symptoms, such as [fever greater than 101 F, shaking chills, worsening pain, persistent vomiting or other bothersome symptoms] Prescriptions: New Eliquis 2.5 mg tablet 2.5 mg PO BID Qty: 60 0RF Rx Instructions: creatinine 2.04 GFR 31 No Action levothyroxine 100 mcg capsule 100 mcg PO DAILY acyclovir 200 mg capsule 400 mg PO BID Rx Instructions: afternoon and bedtime atorvastatin 10 mg tablet 10 mg PO BEDTIME coenzyme Q10 [CoQ-10] 100 mg capsule 200 mg PO DAILY latanoprost 0.005 % drops 1 drp EYE-BOTH BEDTIME prednisone 20 mg tablet 20 mg PO DAILY PRN (Reason: Gout) hydralazine 10 mg tablet 10 mg PO USEASDIRECTD PRN (Reason: Hypertension) Rx Instructions: take as needed for systolic BP> 160. take 1 every 30 minutes until blood pressure is lowered ondansetron 4 mg tablet,disintegrating 4 mg PO Q6H PRN (Reason: nausea and vomiting) Qty: 10 0RF midodrine 5 mg Tablet 5 mg PO DAILY PRN (Reason: Hypotension) Rx Instructions: one or two tabs as needed for low blood pressure. do not give last dose of day after 6PM or within 4 hrs of bedtime gabapentin 100 mg capsule 100 mg PO BID Patient Comments: take 1 to 2 capsules by mouth three times a day aspirin 81 mg Capsule 81 mg PO DAILY magnesium hydroxide [Milk of Magnesia] 400 mg/5 mL Suspension 5 ml PO Q OTHER DAY Rx Instructions: at bedtime cyanocobalamin (vitamin B-12) 1,000 mcg Tablet, Sublingual 1,000 mcg PO 3XW Rx Instructions: thursday, thursday, thursday ipratropium bromide 42 mcg (0.06 %) spray,non-aerosol 2 spray INTRANASAL TID PRN (Reason: Allergy Symptoms) Patient Comments: USE 2 SPRAYS IN EACH NOSTRIL 3 TIMES DAILY NEEDED FOR RHINORRHEA cholecalciferol (vitamin D3) [Vitamin D3] 50 mcg (2,000 unit) Capsule 50 mcg PO DAILY Rx Instructions: mid day Myrbetriq 25 mg tablet extended release 24 hr 25 mg PO BEDTIME Patient Comments: take 1 tablet by mouth once daily pantoprazole [Protonix] 40 mg tablet,delayed release (DR/EC) 40 mg PO QAM Qty: 90 0RF Referrals: Santana Mckee MD [Primary Care Provider] - Stand Alone Forms: Patient Portal/API
--- NOTE | 2023-02-12 20:35 | PC.NURSE ---
Patient states he takes milk of mag for constipation every other day. Last BM was today. He has urinary urgency and trouble starting the flow, but has been able to pee. He saw a urologist today.
--- NOTE | 2023-02-12 20:41 | DI.CT.S_ITS ---
PROCEDURE: CT ABDOMEN PELVIS W CON INDICATIONS: severe LLQ pain TECHNIQUE: After the administration of IV contrast, axial sections were acquired from the lung bases to the pubic symphysis. Coronal and sagittal reformats were performed. For radiation dose reduction, the following was used: automated exposure control, adjustment of mA and/or kV according to patient size. COMPARISON: None. FINDINGS: Image quality: Portions of the lower pelvis are suboptimally evaluated secondary to metallic streak artifact from hip arthroplasty. Lung bases: Unremarkable. Heart: Mildly prominent. ABDOMEN: Liver: Steatosis is present. Gallbladder: Removed. Biliary ducts: Unremarkable. Pancreas: Unremarkable. Spleen: Unremarkable. Adrenal Glands: Unremarkable. Kidneys and Ureters: Nonobstructing 1.5 cm inferior left renal pole calcification, Hounsfield 30. Stomach and Bowel: Stomach, small bowel loops, and colon are nonobstructive. Diverticula are present. There is a thickened appearance sigmoid. It is incompletely There is focal loop small bentley abdomen demonstrating thickening and inflammatory change. There is mild fluid-filled proximal prominence. Peritoneum: No abnormal intraperitoneal fluid. No free air. Ventral Wall: No hernia. Abdominal Nodes: No retroperitoneal or mesenteric adenopathy by size criteria. Vessels: Aorta and inferior vena cava are normal in size. PELVIS: Pelvic Organs: Unremarkable. Bladder: Unremarkable. Pelvic Nodes: No enlarged lymph nodes. Miscellaneous: No inguinal hernias are seen. Bones: Unremarkable. IMPRESSION: Focal loop of small bowel within the left hemiabdomen demonstrating thickening and inflammatory change with mild proximal dilation. Findings are most suggestive of focal infection/inflammation. Recommend interval follow-up to document resolution after appropriate therapy and exclude presence underlying mass. Nonobstructing left renal calcification Dictated by: Meghann Palumbo M.D. on 02/12/2023 at 21:51 Approved by: Meghann Palumbo M.D. on 02/12/2023 at 21:56
[2023-02-12 20:42] LABS: Add Manual Diff / Slide Review NO; Basophils Absolute Auto 100 /uL (0-100); Basophils Percent Auto 0.7 % (0-2); Eosinophils Absolute Auto 100 /uL (0-450); Eosinophils Percent Auto 1.1 % (2-4); Hematocrit 44.9 % (41-53); Hemoglobin 15.3 g/dL (13.5-17.5); Lymphocytes Absolute Auto 1300 /uL (1100-4500); Lymphocytes Percent Auto 10.9 % (25-40); Mean Corpuscular Hemoglobin 32.5 PG (26-34); Mean Corpuscular Volume 95.7 fL (80-100); Monocytes Absolute Auto 900 /uL (0-900); Monocytes Percent Auto 7.4 % (3-14); Neutrophils Absolute Auto 9900 /uL (1500-7000); Neutrophils Percent Auto 79.9 % (50-75); Platelet Count 216 X10^3/uL (150-400); Red Blood Cell Count 4.69 X10^6/uL (4.5-5.9); Red Cell Distribution Width 13.5 % (11.6-14.8); White Blood Cell Count 12.4 X10^3/uL (4.5-11.0)
[2023-02-12 20:54] LABS: Alanine Aminotransferase 19 IU/L (<50); Albumin Globulin Ratio 1.3 (1.0-2.8); Alkaline Phosphatase 74 U/L (38-126); Aspartate Aminotransferase 19 IU/L (17-59); BUN Creatinine Ratio 15.7 (6-22); Bilirubin Total 1.1 mg/dL (0.2-1.3); Blood Urea Nitrogen 32 mg/dL (9-20); Calcium 9.5 mg/dL (8.4-10.2); Carbon Dioxide 32 mmol/L (22-32); Chloride 101 mmol/L (98-107); Estimated Glomerular Filt Rate 31 mL/min (>60); Globulin 3.1 g/dL (1.7-4.1); Glucose 96 mg/dL (80-110); HEMOLYSIS < 15 (0-50); Lipase 59 U/L (23-300); Potassium 4.2 mmol/L (3.4-5.1); Sodium 139 mmol/L (137-145); Total Protein 7.1 g/dL (6.3-8.2)
[2023-02-12] MEDS: SODIUM CHLORIDE 0.9% 500 ML 1000 ML IV (21:17)
--- NOTE | 2023-02-12 21:26 | PC.NURSE ---
Patient returned from CT and oxygen saturation went down to 91% on room air with a good pleth. Patient denies shortness of breath, dizziness, lightheaded. Denies having COPD. Patient was placed on 2L NC for comfort. Oxygen saturation increased to 96% on 2L.
--- NOTE | 2023-02-12 22:10 | PC.NURSE ---
Patient was able to stand at bedside with stand by assistance to provide a urine specimen. Patient was swaying a little while standing, but both patient and spouse state that is normal for him due to his parkinson's. Patient denies dizziness, light headed. Patient was removed from MI oxygen and is satting at 95% on room air.
[2023-02-12 22:19] LABS: Bacteria Urine None Seen; RBC Urine None Seen (0-5/HPF); Squamous Epithelial Cell Urine 1-5 /HPF (0-5/HPF); WBC Urine 1-5/HPF (0-5/HPF)
[2023-02-12 22:20] LABS: Culture Indicated Urine Specimen Cultured
== END 2023-02-12 23:00 | disposition home or self-care (01) ==
PROVIDERS: Emergency Provider Emergency Medicine; Family Provider Family Medicine; PCP Family Medicine
DX: I48.92 Unspecified atrial flutter (principal); R10.32 Left lower quadrant pain; Z79.01 Long term (current) use of anticoagulants; Z79.899 Other long term (current) drug therapy
CPT/HCPCS: 36415; 74177; 80053; 81003; 81015; 83605; 83690; 85025; 87086; 93005; 93010; 99284; Q9967

== ENCOUNTER → 2023-05-11 15:52 | Outpatient (CLI) | payer MEDICARE, BC, OTHER, SELFPAY ==
[2022-06-30 18:37] VITALS: BMI 30.5
--- NOTE | 2023-05-11 | DI.RAD.S_ITS ---
PROCEDURE: XR CHEST 2V INDICATIONS: Pneumonia, unspecified organism TECHNIQUE: 2 views of the chest were acquired. COMPARISON: [facility], CT, CT ABDOMEN PELVIS W CON, 02/12/2023, 21:08. FINDINGS: Surgical changes and devices: None. Lungs and pleura: Left lower lobe consolidation. Mediastinum: Mediastinal contours are normal. Heart size is normal. Bones and chest wall: No suspicious bony abnormalities. Soft tissues appear unremarkable. IMPRESSION: Left lower lobe consolidation. In conjunction with appropriate clinical symptoms of infection or inflammation, this may represent pneumonia. However, if not clinically appropriate, mass lesion or other etiology cannot be excluded. Recommend interval follow up after appropriate therapy to document resolution. Dictated by: Evlin Arthur M.D. on 05/11/2023 at 17:04 Approved by: Elvin Arthur M.D. on 05/11/2023 at 17:04
== END ==
PROVIDERS: Family Provider Family Medicine; PCP Family Medicine; Referring Provider Family Medicine; Visit Provider Family Medicine
DX: J18.9 Pneumonia, unspecified organism (principal)
CPT/HCPCS: 71046

== ENCOUNTER → 2023-06-03 14:07 | Outpatient (CLI) | payer MEDICARE, BC, OTHER, SELFPAY ==
[2022-06-30 18:37] VITALS: BMI 30.5
--- NOTE | 2023-06-03 | DI.RAD.S_ITS ---
PROCEDURE: XR CHEST 2V INDICATIONS: Pneumonia, unspecified organism TECHNIQUE: 2 views of the chest were acquired. COMPARISON: [facility], CR, XR CHEST 2V, 05/11/2023, 16:03. FINDINGS: Surgical changes and devices: None. Lungs and pleura: Retrocardiac opacity is redemonstrated. There is new small left pleural effusion. Mediastinum: Mediastinal contours are normal. Heart size is normal. Bones and chest wall: No suspicious bony abnormalities. Soft tissues appear unremarkable. IMPRESSION: Redemonstration of retrocardiac opacity and new small left pleural effusion. Recommend CT chest for further evaluation as mass cannot be excluded. Dictated by: Ludwin Waddell M.D. on 06/03/2023 at 15:01 Approved by: Ludwin Waddell M.D. on 06/03/2023 at 15:03
== END ==
PROVIDERS: Family Provider Family Medicine; PCP Family Medicine; Referring Provider Family Medicine; Visit Provider Family Medicine
DX: J18.9 Pneumonia, unspecified organism (principal); J90 Pleural effusion, not elsewhere classified
CPT/HCPCS: 71046

== ENCOUNTER → 2023-06-05 15:34 | Outpatient (CLI) | payer MEDICARE, BC, OTHER, SELFPAY ==
[2022-06-30 18:37] VITALS: BMI 30.5
--- NOTE | 2023-06-05 | DI.CT.S_ITS ---
PROCEDURE: CT CHEST WO CON INDICATIONS: Pleural effusion, not elsewhere classified TECHNIQUE: Noncontrast 5 mm thick sections acquired from the pulmonary apices to the posterior costophrenic angles. 1 mm lung window, 5 mm thick coronal and sagittal and 7 mm axial MIP reformats were then acquired. For radiation dose reduction, the following was used: automated exposure control, adjustment of mA and/or kV according to patient size. COMPARISON: [facility], CR, XR CHEST 2V, 06/03/2023, 14:19. FINDINGS: Image quality: Excellent. Lungs and pleura: Small left pleural effusion. There is mild adjacent compressive atelectasis versus less likely consolidation. No right pleural effusion. No pneumothorax. Central and peripheral airways are patent and normal in caliber. Scattered sub 3 millimeter micro nodules, majority of which are calcified and likely represent granulomas. Mediastinum: Heart size is normal. Moderate multivessel coronary artery calcifications, severe of the left anterior descending. Small pericardial effusion. No mediastinal adenopathy by size criteria. Thoracic aorta and central pulmonary arteries are normal in size. Atherosclerotic vascular calcifications are present. Esophagus is normal in caliber. No hiatal hernia. Bones and chest wall: No suspicious bony lesions. Mild degenerative changes of the spine. No vertebral body compression fractures. No axillary or supraclavicular adenopathy by size criteria. Thyroid gland is mildly atrophic, otherwise unremarkable . Abdomen: Visualized upper abdominal solid organs and bowel loops appear normal in the absence of contrast. IMPRESSION: 1. Small left pleural effusion present. There is mild adjacent atelectasis versus consolidation. No definite underlying mass is seen. Recommend continued radiographic follow-up to ensure resolution. 2. Scattered sub 3 millimeter micro nodules, majority which are calcified and likely represent granulomas. 3. Moderate multivessel coronary artery calcifications, severe of the left anterior descending. Dictated by: Ludwin Waddell M.D. on 06/05/2023 at 16:18 Approved by: Ludwin Waddell M.D. on 06/05/2023 at 16:26
== END ==
PROVIDERS: Family Provider Family Medicine; PCP Family Medicine; Referring Provider Family Medicine; Visit Provider Family Medicine
DX: J90 Pleural effusion, not elsewhere classified (principal); R91.8 Other nonspecific abnormal finding of lung field; I25.10 Atherosclerotic heart disease of native coronary artery without angina pectoris
CPT/HCPCS: 71250

== ENCOUNTER → 2023-10-06 16:23 | Outpatient (CLI) | payer MEDICARE, BC, OTHER, SELFPAY ==
[2022-06-30 18:37] VITALS: BMI 30.5
--- NOTE | 2023-10-06 16:27 | DI.RAD.S_ITS ---
PROCEDURE: XR ANKLE RT MIN 3V INDICATIONS: RIGHT ANKLE PAIN TECHNIQUE: 3 views of the ankle were acquired. COMPARISON: None. FINDINGS: Bones: Possible linear avulsion fragment distal to the fibula. Donor site is not certain but suspected to be lateral talus. The ankle mortise remains intact. There are mild degenerative changes in the tibiotalar joint. Moderate plantar calcaneal spur incidentally noted. Soft tissues: Moderate-sized tibiotalar joint effusion. Grossly intact Achilles tendon. Surgical clip in the lower leg soft tissue. IMPRESSION: Lateral ankle sprain with probable lateral talar avulsion fracture. Tibiotalar joint effusion. Dictated by: Stephani Villar M.D. on 10/06/2023 at 18:52 Approved by: Stephani Villar M.D. on 10/06/2023 at 18:54
== END ==
PROVIDERS: Family Provider Family Medicine; PCP Family Medicine; Referring Provider Family Medicine; Visit Provider Family Medicine
DX: S93.491A Sprain of other ligament of right ankle, initial encounter (principal); M25.571 Pain in right ankle and joints of right foot; M25.471 Effusion, right ankle
CPT/HCPCS: 73610

== ENCOUNTER → 2023-10-27 18:36 | Outpatient (CLI) | payer MEDICARE, BC, OTHER, SELFPAY ==
[2022-06-30 18:37] VITALS: BMI 30.5
--- NOTE | 2023-10-27 | DI.MRI.S_ITS ---
PROCEDURE: MR CERVICAL SPINE WO CON INDICATIONS: Cervicalgia Pain in right ankle TECHNIQUE: Noncontrast sagittal T1 spin echo and T2 fast spin echo, sagittal STIR, foraminal oblique sagittal T2 fast spin echo, and axial gradient echo or T2 fast spin echo through the cervical spine. COMPARISON: None. FINDINGS: Image quality: Excellent. Alignment and Curvature: There is trace anterolisthesis of C4 on C5, fusion at C5-6. There is slight reversal cervical curvature with apex at C5-6. Bone Marrow: Marrow demonstrates normal overall signal. Spinal Cord: Visualized spinal cord has normal size and signal. No cerebellar tonsillar herniation. Paraspinous Soft Tissues: No paravertebral masses. Prevertebral soft tissues are normal in thickness. Discs: Multilevel disc desiccation with fusion appearance at C5-6. C2-C3: Mild disc bulge without spinal stenosis. No foraminal narrowing. C3-C4: Mild disc bulge with mild spinal stenosis. Moderate to severe bilateral foraminal narrowing with uncovertebral hypertrophy. C4-C5: Mild disc bulge with minimal spinal stenosis. Severe right and moderate left foraminal narrowing with uncovertebral hypertrophy. C5-C6: Mild disc bulge without spinal stenosis. Moderate right and mild left foraminal narrowing with uncovertebral hypertrophy. C6-C7: Mild disc bulge without spinal stenosis. Moderate bilateral foraminal narrowing with uncovertebral hypertrophy. C7-T1: No disc bulge, spinal stenosis or foraminal narrowing. IMPRESSION: Multilevel degenerative changes including prominent foraminal narrowing most severe at C4-5 secondary to uncovertebral arthropathy. Multilevel spinal stenosis secondary to disc bulge with contributing effect of uncovertebral arthropathy as well as reversal cervical curvature. Dictated by: Meghann Palumbo M.D. on 10/28/2023 at 9:41 Approved by: Meghann Palumbo M.D. on 10/28/2023 at 11:23
--- NOTE | 2023-10-27 | DI.MRI.S_ITS ---
PROCEDURE: MR ANKLE RT WO CON INDICATIONS: Cervicalgia Pain in right ankle TECHNIQUE: Noncontrast sagittal T1 spin echo and T2 fast spin echo with fat saturation, axial proton density fast spin echo and T2 fast spin echo with fat saturation, coronal T1 spin echo and T2 fast spin echo with fat saturation through the ankle/hindfoot. COMPARISON: [facility], CR, XR ANKLE RT MIN 3V, 10/06/2023, 16:35. FINDINGS: Image quality: Diagnostic. Susceptibility artifacts from surgical clip in distal lower leg soft tissue are seen. Bones and joints: Diffuse soft tissue swelling and edema around distal lower leg extending to midfoot and hindfoot is seen. [id number] osteoarthritic changes are noted throughout midfoot and hindfoot joints. No bone marrow contusions or fractures. No hindfoot coalitions. No osteochondral injuries of the talar dome. Small tibiotalar joint effusion is seen, no gross loose bodies. Well-defined plantar calcaneal enthesophyte is seen. Medial structures: The posterior tibialis tendon is mildly thickened at the level of mid to distal talus and talonavicular joint. The flexor digitorum longus, and flexor hallucis longus tendons are intact. The posterior tibial neurovascular bundle appears normal within the tarsal tunnel, without extrinsic mass effect. The deep layer (anterior and posterior tibiotalar ligaments) and superficial layer (tibionavicular, tibiospring, and tibiocalcaneal ligaments) of the deltoid ligament appear normal. The spring ligament components (superomedial calcaneonavicular, medioplantar oblique calcaneonavicular, and inferoplantar longitudinal ligaments) are intact. Lateral structures: The anterior talofibular, calcaneofibular, and posterior talofibular ligaments appear attenuated with intrasubstance T2 hyperintense signal. More superiorly, the anterior and posterior tibiofibular ligaments appear intact, as is the intermalleolar ligament. The tibiofibular syndesmosis is normal in width at 2 mm or less. The peroneus longus and brevis tendons are thickened with intrasubstance T2 hyperintense signal at the level of lateral malleolus tip extending to the level of calcaneocuboid joint . Adjacent bony peroneal tubercle and retrotrochlear prominence are normal in size. The sinus tarsi demonstrates normal fatty signal, without edema, fibrosis, or cyst formation. Visualized sinus tarsi components (cervical ligament, interosseous talocalcaneal ligament, roots of the inferior extensor retinaculum) appear normal. The calcaneonavicular and calcaneocuboid components of the bifurcate ligament appear intact. The dorsal calcaneocuboid ligament appears intact. Anterior structures: The tibialis anterior, extensor hallucis longus, and extensor digitorum longus tendons appear intact. The dorsal talonavicular ligament appears intact. Posterior and plantar structures: Achilles tendon is intact. Mildly thickened medial band of plantar fascia at its plantar calcaneal insertion is seen. No abductor digiti quinti muscle atrophy to suggest Horner neuropathy. IMPRESSION: 1. [id number] midfoot and hindfoot joint osteoarthritis. Diffuse soft tissue swelling around midfoot and hindfoot. No discrete drainable fluid collection. No fracture or dislocation. No gross osteochondral injuries of talar dome. Small joint effusion, no gross loose bodies. 2. Mild tendinosis involving posterior tibialis tendon at the level of mid to distal talus and talonavicular joint. 3. Moderate tendinosis and partial-thickness tear involving peroneus longus and brevis tendons at the level of lateral malleolus tip extending to the level of calcaneocuboid joint. 4. Low to moderate grade sprain/intrasubstance partial-thickness tear involving anterior and posterior talofibular ligaments and calcaneofibular ligament. 5. Well-defined plantar calcaneal enthesophyte with mildly thickened medial band of plantar fascia suggestive of low-grade plantar fasciitis. Dictated by: Randell Xavier M.D. on 10/28/2023 at 8:56 Approved by: Randell Xavier M.D. on 10/28/2023 at 9:00
== END ==
PROVIDERS: Family Provider Family Medicine; PCP Family Medicine; Referring Provider Physical Medicine & Rehabilitation; Visit Provider Physical Medicine & Rehabilitation
DX: M47.812 Spondylosis without myelopathy or radiculopathy, cervical region (principal); M50.31 Other cervical disc degeneration, high cervical region; M48.02 Spinal stenosis, cervical region; S96.811A Strain of other specified muscles and tendons at ankle and foot level, right foot, initial encounter; S93.411A Sprain of calcaneofibular ligament of right ankle, initial encounter; S93.491A Sprain of other ligament of right ankle, initial encounter; M25.571 Pain in right ankle and joints of right foot; M19.071 Primary osteoarthritis, right ankle and foot; M77.31 Calcaneal spur, right foot; M25.474 Effusion, right foot
CPT/HCPCS: 72141; 73721